=== PATIENT | female | born 1935 | race Caucasian/White ===

== ENCOUNTER → 2016-04-04 | Outpatient (REF) | payer MEDICARE ==
[~2016-04-04] MED LIST: CLAR1TAB2 PO; CLON1TAB PO; Docusate Sod/Senna PO; FERR325T3 PO; FISH100049 PO; FURO40TA2 PO; MONT10TA2 PO; NEUR600T PO; PERC5TAB6 PO; PERCOCET PO; RANI15TA PO; SPIR25TA2 PO; SYNT50TA PO; XARE20TA PO; ZOCO20TA PO
[2016-04-05 11:37] LABS: BASO # 0.1 K/mm3 (0.0-0.2); BASO % 0.8 % (0.0-1.0); EOS # 0.2 K/mm3 (0.0-0.50); LARGE UNSTAINED CELL # 0.1 K/mm3 (0.0-0.4); LARGE UNSTAINED CELL % 1.4 % (0.0-4.0); LYMPH % 20.9 % (24.0-44.0); MEAN CORPUSCULAR HEMOGLOBIN 29.4 pg (27.0-33.0); MEAN CORPUSCULAR HGB CONC 32.2 g/dl (32.0-36.5); MEAN CORPUSCULAR VOLUME 91.4 fl (80.0-96.0); MONO # 0.4 K/mm3 (0.0-0.8); MONO % 4.1 % (0.0-5.0); NEUTROPHILS # 6.8 K/mm3 (1.8-7.7); NEUTROPHILS % 70.8 % (36.0-66.0); PLATELET COUNT, AUTOMATED 311 k/mm3 (150-450); RED CELL DISTRIBUTION WIDTH 13.9 % (11.5-14.5); WHITE BLOOD COUNT 9.6 K/mm3 (4.0-10.0)
[2016-04-05 11:42] LABS: FOLATE 19.4 NG/ML (>5.4); VITAMIN B12 LEVEL 362 PG/ML (247-911)
[2016-04-05 11:53] LABS: ALBUMIN 3.7 GM/DL (3.2-5.2); ALBUMIN/GLOBULIN RATIO 1.23 (1.00-1.93); ALKALINE PHOSPHATASE 117 U/L (45-117); ALT/SGPT 18 U/L (12-78); ANION GAP 12 MEQ/L (8-16); AST/SGOT 9 U/L (15-37); BILIRUBIN,TOTAL 0.5 MG/DL (0.2-1.0); BLOOD UREA NITROGEN 13 MG/DL (7-18); CALCIUM LEVEL 8.9 MG/DL (8.8-10.2); CARBON DIOXIDE LEVEL 30 MEQ/L (21-32); CHLORIDE LEVEL 101 MEQ/L (98-107); CHOLESTEROL LEVEL 129 MG/DL (<200); CREATININE FOR GFR 0.88 MG/DL (0.55-1.02); GLOMERULAR FILTRATION RATE > 60.0 (>32); GLUCOSE, FASTING 94 MG/DL (83-110); POTASSIUM SERUM 4.6 MEQ/L (3.5-5.1); SODIUM LEVEL 143 MEQ/L (136-145); TOTAL PROTEIN 6.7 GM/DL (6.4-8.2); TRIGLYCERIDES LEVEL 172 MG/DL (<150)
== END ==
LOC: M SFHCCLAY 14:58
PROVIDERS: ATTEND Family Medicine
DX: G62.9 Polyneuropathy, unspecified (principal); E78.5 Hyperlipidemia, unspecified; R73.01 Impaired fasting glucose; E03.9 Hypothyroidism, unspecified; Z79.899 Other long term (current) drug therapy

== ENCOUNTER → 2016-04-10 | Outpatient (CLI) | payer MEDICARE ==
--- NOTE | 2016-04-10 10:58 | REP ---
Clinical: Anterior chest wall contusion . Comparison: 08/10/2015 . Technique: PA and lateral. Findings: The mediastinum and cardiac silhouette are normal. The lung burt demonstrate chronic-appearing changes without acute consolidation or pneumothorax. A small right pleural effusion/reaction cannot be excluded. The skeletal structures appear intact. Impression: 1. Cannot exclude small right pleural effusion.
== END ==
LOC: M CLY 10:25
PROVIDERS: ATTEND Family Medicine
DX: S20.211D Contusion of right front wall of thorax, subsequent encounter (principal); R05 Cough; W06.XXXD Fall from bed, subsequent encounter; Y92.009 Unspecified place in unspecified non-institutional (private) residence as the place of occurrence of the external cause; Y93.01 Activity, walking, marching and hiking; Y99.8 Other external cause status

== ENCOUNTER → 2016-10-03 | Outpatient (REF) | payer MEDICARE ==
[~2016-10-03] MED LIST changes: +PERC5TAB12 PO; -PERC5TAB6 PO
[2016-10-04 12:00] LABS: BASO # 0.1 K/mm3 (0.0-0.2); BASO % 0.9 % (0.0-1.0); EOS # 0.2 K/mm3 (0.0-0.50); EOS % 2.5 % (0.0-3.0); LARGE UNSTAINED CELL # 0.1 K/mm3 (0.0-0.4); LARGE UNSTAINED CELL % 1.2 % (0.0-4.0); LYMPH # 2.4 K/mm3 (1.5-4.5); LYMPH % 27.3 % (24.0-44.0); MEAN CORPUSCULAR HEMOGLOBIN 29.9 pg (27.0-33.0); MEAN CORPUSCULAR HGB CONC 32.9 g/dl (32.0-36.5); MEAN CORPUSCULAR VOLUME 90.8 fl (80.0-96.0); MONO # 0.3 K/mm3 (0.0-0.8); NEUTROPHILS # 5.5 K/mm3 (1.8-7.7); NEUTROPHILS % 64.2 % (36.0-66.0); PLATELET COUNT, AUTOMATED 226 k/mm3 (150-450); WHITE BLOOD COUNT 8.5 K/mm3 (4.0-10.0)
[2016-10-04 12:29] LABS: ALBUMIN 3.7 GM/DL (3.2-5.2); ALBUMIN/GLOBULIN RATIO 1.42 (1.00-1.93); ALKALINE PHOSPHATASE 82 U/L (45-117); ALT/SGPT 27 U/L (12-78); ANION GAP 8 MEQ/L (8-16); AST/SGOT 15 U/L (15-37); BILIRUBIN,TOTAL 0.6 MG/DL (0.2-1.0); BLOOD UREA NITROGEN 11 MG/DL (7-18); CARBON DIOXIDE LEVEL 29 MEQ/L (21-32); CHLORIDE LEVEL 106 MEQ/L (98-107); CREATININE FOR GFR 0.77 MG/DL (0.55-1.02); GLOMERULAR FILTRATION RATE > 60.0 (>32); GLUCOSE, FASTING 90 MG/DL (83-110); POTASSIUM SERUM 4.4 MEQ/L (3.5-5.1); SODIUM LEVEL 143 MEQ/L (136-145); TOTAL PROTEIN 6.3 GM/DL (6.4-8.2)
[2016-10-04 12:39] LABS: FOLATE 19.3 NG/ML (>5.4); VITAMIN B12 LEVEL 301 PG/ML (247-911)
== END ==
LOC: M SFHCCLAY 15:48
PROVIDERS: ATTEND Family Medicine
DX: D50.8 Other iron deficiency anemias (principal); E03.9 Hypothyroidism, unspecified; G62.9 Polyneuropathy, unspecified; R73.01 Impaired fasting glucose

== ENCOUNTER → 2016-11-15 | Outpatient (CLI) | payer MEDICARE ==
--- NOTE | 2016-11-15 13:21 | REP ---
PA and lateral chest: Comparison is 04/10/2016. There is chronic cardiomegaly, unchanged. There are no focal infiltrates. No pleural effusions. Lung burt otherwise clear. The giovanny, mediastinum, and bony thorax are unremarkable. There are surgical clips in the mid upper abdomen. Impression: Chronic cardiomegaly. Otherwise, negative chest.
== END ==
LOC: M CLY 09:38
PROVIDERS: ATTEND Family Medicine
DX: I48.91 Unspecified atrial fibrillation (principal); I51.7 Cardiomegaly; R05 Cough; D50.8 Other iron deficiency anemias; E78.5 Hyperlipidemia, unspecified; Z79.899 Other long term (current) drug therapy; J30.9 Allergic rhinitis, unspecified; R73.01 Impaired fasting glucose; G62.9 Polyneuropathy, unspecified; Z87.74 Personal history of (corrected) congenital malformations of heart and circulatory system; Z98.890 Other specified postprocedural states

== ENCOUNTER → 2016-11-15 | Outpatient (REF) | payer MEDICARE ==
[2016-11-15 11:29] LABS: BASO # 0.1 K/mm3 (0.0-0.2); BASO % 1.7 % (0.0-1.0); EOS # 0.3 K/mm3 (0.0-0.50); EOS % 3.7 % (0.0-3.0); LARGE UNSTAINED CELL # 0.1 K/mm3 (0.0-0.4); LARGE UNSTAINED CELL % 1.6 % (0.0-4.0); LYMPH # 2.2 K/mm3 (1.5-4.5); LYMPH % 30.7 % (24.0-44.0); MEAN CORPUSCULAR VOLUME 90.9 fl (80.0-96.0); MONO # 0.4 K/mm3 (0.0-0.8); MONO % 5.6 % (0.0-5.0); NEUTROPHILS # 3.9 K/mm3 (1.8-7.7); NEUTROPHILS % 56.6 % (36.0-66.0); PLATELET COUNT, AUTOMATED 285 k/mm3 (150-450); RED CELL DISTRIBUTION WIDTH 13.9 % (11.5-14.5); WHITE BLOOD COUNT 6.9 K/mm3 (4.0-10.0)
[2016-11-15 12:25] LABS: ALBUMIN 3.8 GM/DL (3.2-5.2); ALBUMIN/GLOBULIN RATIO 1.27 (1.00-1.93); ALKALINE PHOSPHATASE 94 U/L (45-117); ALT/SGPT 19 U/L (12-78); ANION GAP 4 MEQ/L (8-16); AST/SGOT 16 U/L (15-37); BILIRUBIN,TOTAL 0.6 MG/DL (0.2-1.0); BLOOD UREA NITROGEN 13 MG/DL (7-18); CALCIUM LEVEL 9.5 MG/DL (8.8-10.2); CARBON DIOXIDE LEVEL 33 MEQ/L (21-32); CHLORIDE LEVEL 104 MEQ/L (98-107); CREATININE FOR GFR 0.79 MG/DL (0.55-1.02); GLOMERULAR FILTRATION RATE > 60.0 (>32); GLUCOSE, FASTING 98 MG/DL (83-110); POTASSIUM SERUM 4.8 MEQ/L (3.5-5.1); SODIUM LEVEL 141 MEQ/L (136-145); TOTAL PROTEIN 6.8 GM/DL (6.4-8.2)
== END ==
LOC: M SFHCCLAY 09:28
PROVIDERS: ATTEND Family Medicine
DX: R05 Cough (principal); I48.91 Unspecified atrial fibrillation; D50.8 Other iron deficiency anemias; E78.5 Hyperlipidemia, unspecified; Z79.899 Other long term (current) drug therapy; J30.9 Allergic rhinitis, unspecified; R73.01 Impaired fasting glucose; G62.9 Polyneuropathy, unspecified; Z87.74 Personal history of (corrected) congenital malformations of heart and circulatory system; Z98.890 Other specified postprocedural states

== ENCOUNTER → 2016-12-06 | Outpatient (REF) | payer MEDICARE ==
[2016-12-06 18:19] LABS: CALCIUM LEVEL 9.4 MG/DL (8.8-10.2); CREATININE FOR GFR 1.04 MG/DL (0.55-1.02); GLOMERULAR FILTRATION RATE 54.1 (>32); POTASSIUM SERUM 3.9 MEQ/L (3.5-5.1)
== END ==
LOC: M LAB REF 11:03
PROVIDERS: ATTEND Internal Medicine Pulmonary Disease
DX: R06.02 Shortness of breath (principal)

== ENCOUNTER → 2017-05-17 | Outpatient (REF) | payer OTHER ==
[2017-05-17 17:18] LABS: BASO # 0.1 10^3/uL (0.0-0.2); BASO % 0.9 % (0.0-1.0); EOS # 0.2 10^3/uL (0.0-0.50); HEMATOCRIT 42.7 % (36.0-47.0); HEMOGLOBIN 13.8 g/dl (12.0-16.0); IMMATURE GRANULOCYTE % 0.5 % (0-3.0); LYMPH # 1.6 10^3/uL (1.5-4.5); LYMPH % 22.1 % (24.0-44.0); MEAN CORPUSCULAR HEMOGLOBIN 29.7 pg (27.0-33.0); MEAN CORPUSCULAR HGB CONC 32.3 g/dl (32.0-36.5); MEAN CORPUSCULAR VOLUME 91.8 fl (80.0-96.0); MONO # 0.5 10^3/uL (0.0-0.8); MONO % 6.9 % (0.0-5.0); NEUTROPHILS % 67.6 % (36.0-66.0); PLATELET COUNT, AUTOMATED 243 10^3/uL (150-450); RED BLOOD COUNT 4.65 10^6/uL (4.00-5.40); RED CELL DISTRIBUTION WIDTH 14.2 % (11.5-14.5); WHITE BLOOD COUNT 7.4 10^3/uL (4.0-10.0)
[2017-05-17 17:43] LABS: ESTIMATED AVERAGE GLUCOSE 131 MG/DL (60-110); HEMOGLOBIN A1c 6.2 %
[2017-05-17 17:44] LABS: ALBUMIN 3.6 GM/DL (3.2-5.2); ALBUMIN/GLOBULIN RATIO 1.29 (1.00-1.93); ALKALINE PHOSPHATASE 94 U/L (45-117); ALT/SGPT 20 U/L (12-78); ANION GAP 8 MEQ/L (8-16); AST/SGOT 12 U/L (7-37); BILIRUBIN,TOTAL 0.7 MG/DL (0.2-1.0); BLOOD UREA NITROGEN 13 MG/DL (7-18); CALCIUM LEVEL 8.3 MG/DL (8.8-10.2); CARBON DIOXIDE LEVEL 31 MEQ/L (21-32); CHLORIDE LEVEL 104 MEQ/L (98-107); CHOLESTEROL LEVEL 140 MG/DL (<200); CHOLESTEROL RISK RATIO 2.372 (<5); CREATININE FOR GFR 0.88 MG/DL (0.55-1.30); GLOMERULAR FILTRATION RATE > 60.0 (>32); GLUCOSE, FASTING 143 MG/DL (70-100); HDL CHOLESTEROL 59 MG/DL (>40); IRON (FE) 66 UG/DL (50-170); LDL CHOLESTEROL 49.8 MG/DL (<100); NON-HDL-C 81 MG/DL; POTASSIUM SERUM 4.5 MEQ/L (3.5-5.1); SODIUM LEVEL 143 MEQ/L (136-145); THYROXINE (T4) 11.8 UG/DL (4.5-12.0); TOTAL PROTEIN 6.4 GM/DL (6.4-8.2); TRIGLYCERIDES LEVEL 156 MG/DL (<150)
== END ==
LOC: M SFHCCLAY 09:28
DX: R73.01 Impaired fasting glucose (principal); E78.5 Hyperlipidemia, unspecified; E03.9 Hypothyroidism, unspecified; D50.8 Other iron deficiency anemias
CPT/HCPCS: 83540

== ENCOUNTER → 2017-11-26 | Outpatient (CLI) | payer MEDICARE | LOC: M CLY 10:13 | DX: I51.7 Cardiomegaly (principal); J98.4 Other disorders of lung; R05 Cough; E03.9 Hypothyroidism, unspecified; R73.01 Impaired fasting glucose; D50.8 Other iron deficiency anemias | CPT/HCPCS: 71046; 83540 ==

== ENCOUNTER → 2017-11-26 | Outpatient (REF) | payer OTHER ==
[2017-11-26 17:49] LABS: BASO % 0.3 % (0.0-1.0); EOS % 0.2 % (0.0-3.0); HEMATOCRIT 38.6 % (36.0-47.0); HEMOGLOBIN 12.7 g/dl (12.0-15.5); IMMATURE GRANULOCYTE % 0.7 % (0-3.0); LYMPH # 2.6 10^3/uL (1.5-4.5); LYMPH % 28.6 % (24.0-44.0); MEAN CORPUSCULAR HEMOGLOBIN 29.6 pg (27.0-33.0); MEAN CORPUSCULAR HGB CONC 32.9 g/dl (32.0-36.5); MONO # 0.6 10^3/uL (0.0-0.8); NEUTROPHILS # 5.9 10^3/uL (1.8-7.7); NEUTROPHILS % 64.2 % (36.0-66.0); PLATELET COUNT, AUTOMATED 291 10^3/uL (150-450); RED BLOOD COUNT 4.29 10^6/uL (4.00-5.40); RED CELL DISTRIBUTION WIDTH 14.5 % (11.5-14.5); WHITE BLOOD COUNT 9.2 10^3/uL (4.0-10.0)
[2017-11-26 17:57] LABS: ESTIMATED AVERAGE GLUCOSE 134 MG/DL (60-110); HEMOGLOBIN A1c 6.3 %
[2017-11-26 18:05] LABS: THYROID STIMULATING HORMONE 0.906 uIU/ML (0.358-3.740)
[2017-11-26 18:05] LABS: IRON (FE) 84 UG/DL (50-170)
== END ==
LOC: M SFHCCLAY 09:45
DX: E03.9 Hypothyroidism, unspecified (principal); R73.01 Impaired fasting glucose; D50.8 Other iron deficiency anemias
CPT/HCPCS: 83540

== ENCOUNTER → 2018-03-03 | Outpatient (CLI) | payer MEDICARE | LOC: M RAD 08:20 | DX: R10.84 Generalized abdominal pain (principal) | CPT/HCPCS: 76700 ==

== ENCOUNTER → 2018-03-06 | Outpatient (REF) | payer OTHER ==
[2018-03-06 17:16] LABS: ANION GAP 6 MEQ/L (8-16); BLOOD UREA NITROGEN 20 MG/DL (7-18); CALCIUM LEVEL 9.4 MG/DL (8.8-10.2); CARBON DIOXIDE LEVEL 32 MEQ/L (21-32); CHLORIDE LEVEL 101 MEQ/L (98-107); CREATININE FOR GFR 0.97 MG/DL (0.55-1.30); GLOMERULAR FILTRATION RATE 58.5 (>32); GLUCOSE, FASTING 104 MG/DL (70-100); POTASSIUM SERUM 4.7 MEQ/L (3.5-5.1); SODIUM LEVEL 139 MEQ/L (136-145)
[2018-03-06 17:23] LABS: FOLATE 11.9 NG/ML (>5.4); VITAMIN B12 LEVEL 409 PG/ML (247-911)
== END ==
LOC: M SFHCCLAY 09:21
DX: E78.5 Hyperlipidemia, unspecified (principal); R20.0 Anesthesia of skin
CPT/HCPCS: 82746

== ENCOUNTER → 2018-04-30 | Outpatient (CLI) | payer MEDICARE ==
[~2018-04-30] MED LIST changes: -CLON1TAB PO; +CLON1TAB8 PO; +SPIR-10 PO; -SPIR25TA2 PO
--- NOTE | 2018-04-30 14:36 | REP ---
Clinical: Cough . Comparison: 11/26/2017 . Technique: PA and lateral. Findings: Stable cardiomegaly is appreciated. Lung burt demonstrate chronic stable interstitial changes. A calcified granuloma overlies the right costophrenic angle which actually may be within the right breast as identified on rib series dated 08/10/2015. No obvious acute consolidation, effusion, or pneumothorax. Skeletal structures appear stable. Impression: 1. Cardiomegaly and interstitial changes appear chronic. 2. Granuloma at the right costophrenic angle likely within the right breast as noted on rib series. 08/10/2015. 3. No obvious acute process. If the patient remains symptomatic consider chest CT for further investigation. Electronically Signed by Dima Elias MD 04/30/2018 02:27 P
== END ==
LOC: M CLY 14:04
PROVIDERS: ATTEND Family Medicine
DX: R91.8 Other nonspecific abnormal finding of lung field (principal); I51.7 Cardiomegaly; R05 Cough; R06.2 Wheezing

== ENCOUNTER → 2018-05-05 | Outpatient (CLI) | payer MEDICARE ==
--- NOTE | 2018-05-05 15:41 | REP ---
RIGHT ELBOW, FOUR VIEWS: HISTORY: Pain. There is no acute fracture or dislocation. The joint space is normal in appearance. Calcified densities are present medial and lateral to the distal humerus and posterior to the ulnar olecranon process. This represents ligamentous or tendon calcification. IMPRESSION: There is no acute fracture or dislocation.
== END ==
LOC: M CLY 14:51
PROVIDERS: ATTEND Family Medicine
DX: M25.521 Pain in right elbow (principal)

== ENCOUNTER → 2018-06-06 | Outpatient (REF) | payer MEDICARE ==
[2018-06-06 17:12] LABS: ALBUMIN 3.2 GM/DL (3.2-5.2); ALT/SGPT 20 U/L (12-78); BILIRUBIN,TOTAL 0.5 MG/DL (0.2-1.0); BLOOD UREA NITROGEN 14 MG/DL (7-18); CARBON DIOXIDE LEVEL 32 MEQ/L (21-32); CHLORIDE LEVEL 99 MEQ/L (98-107); CHOLESTEROL LEVEL 138 MG/DL (<200); CHOLESTEROL RISK RATIO 3.136 (<5); CREATININE FOR GFR 0.83 MG/DL (0.55-1.30); GLOMERULAR FILTRATION RATE > 60.0 (>32); GLUCOSE, FASTING 148 MG/DL (70-100); HDL CHOLESTEROL 44 MG/DL (>40); LDL CHOLESTEROL 59 MG/DL (<100); NON-HDL-C 94 MG/DL; POTASSIUM SERUM 3.9 MEQ/L (3.5-5.1); SODIUM LEVEL 140 MEQ/L (136-145); TRIGLYCERIDES LEVEL 176 MG/DL (<150)
[2018-06-06 17:13] LABS: HEMOGLOBIN A1c 6.5 %
== END ==
LOC: M SFHCCLAY 09:39
PROVIDERS: ATTEND Family Medicine
DX: E03.9 Hypothyroidism, unspecified (principal); E78.5 Hyperlipidemia, unspecified; R73.01 Impaired fasting glucose

== ENCOUNTER 2018-08-12 12:33 | Emergency (ER) | payer MEDICARE ==
[~2018-08-12] VITALS: Ht 162.6 cm; Wt 69.5 kg
[2018-08-12] MEDS ORDERED: ADACEL/BOOSTRIX VACCINE (DIPHTH/PERTUSS/ACELL/TETANUS)0.5ML SYR (90715) IM ONE (13:00)
--- NOTE | 2018-08-12 13:29 | REP ---
CT cervical spine without contrast HISTORY: Trauma COMPARISON: None There is no acute fracture or subluxation. Disc bulges are present at the C3-4 and C4-5 levels. Disc bulges with associated osteophyte formation are present at the C5-6 and C6-7 levels. There is minimal narrowing of the spinal canal. Uncinate process and/or facet hypertrophy are present at the C3-4 through C6-7 levels. These findings produce minimal to mild narrowing of the neural foramina. The C3-4 through C6-7 intervertebral discs are decreased in height consistent with disc degeneration. IMPRESSION: 1. There is no acute fracture or subluxation. 2. There is cervical spondylosis at the C3-4 through C6-7 levels. Electronically Signed by Vargas Tse MD 08/12/2018 01:20 P
--- NOTE | 2018-08-12 14:12 | REP ---
Right elbow for views: Comparison is 05/05/2018. Mineralization is normal. The joint spaces are unremarkable. There is no fracture or dislocation. There is no effusion. There are chronic calcifications adjacent to the medial lateral distal humeral epicondyles and adjacent to the olecranon process, unchanged, likely degenerative ligamentous calcifications per Impression: No fracture or dislocation. No effusion. Calcifications as described. No interval change. Electronically Signed by Royce Moreno MD 08/12/2018 02:03 P
[2018-08-12] MEDS ORDERED: LIDOCAINE 2% W/EPIN INJ 20ML **PRES FREE INJ ONE (14:45)
[2018-08-12] MEDS ORDERED: BACIOIN5 OP (15:43)
--- NOTE | 2018-08-12 15:45 | REP ---
CT brain without contrast: History: Head trauma. CT findings: Digital preliminary material handling supervisor radiographs are unremarkable. On bone window settings, there is no evidence of skull fracture. No bony destructive lesion is seen. There is an area of scalp swelling and irregularity in the right frontal region. Heavy vascular calcification is seen in the distal carotid arteries. There is some mucus in the sphenoid sinus. The visualized paranasal sinuses are otherwise clear. On soft tissue window settings, there is generalized volume loss. Small vessel atherosclerotic changes are seen in the periventricular white matter. There is no evidence of intracranial hemorrhage. No extra-axial fluid collection is seen. No mass, infarction or midline shift is seen. Impression: Right frontal scalp swelling and irregularity. No skull fractures seen. Vascular calcification, diffuse atrophy, and small vessel atherosclerotic changes. No acute intracranial abnormality. Electronically Signed by Loy Tang MD 08/12/2018 05:25 P
--- NOTE | 2018-08-12 15:54 | REP ---
RIGHT KNEE, FIVE VIEWS: HISTORY: Trauma. There is no acute fracture or dislocation. There is mild narrowing of the joint spaces. Osteophytes are present on the femur and patella. IMPRESSION: There is no acute fracture or dislocation. Electronically Signed by Vargas Tse MD 08/12/2018 03:54 P
[2018-08-12 16:50] VITALS: BP 155/83
== END 2018-08-12 16:54 | disposition home or self-care (01) ==
LOC: EDBD 12:33 → M ED 12:33
DX: S01.01XA Laceration without foreign body of scalp, initial encounter (principal); T14.8XXA Other injury of unspecified body region, initial encounter; W01.0XXA Fall on same level from slipping, tripping and stumbling without subsequent striking against object, initial encounter; Y92.018 Other place in single-family (private) house as the place of occurrence of the external cause; I48.91 Unspecified atrial fibrillation; F33.9 Major depressive disorder, recurrent, unspecified; F41.9 Anxiety disorder, unspecified; E07.9 Disorder of thyroid, unspecified; E78.9 Disorder of lipoprotein metabolism, unspecified; Z79.899 Other long term (current) drug therapy; Z79.890 Hormone replacement therapy; Z79.01 Long term (current) use of anticoagulants; Z88.5 Allergy status to narcotic agent; Z88.8 Allergy status to other drugs, medicaments and biological substances

== ENCOUNTER → 2018-08-21 | Outpatient (CLI) | payer MEDICARE ==
[~2018-08-21] MED LIST changes: +BACIOIN5 OP
--- NOTE | 2018-08-21 14:49 | REP ---
Chest two views HISTORY: Shortness of breath Comparison: 04/30/2018 A minimal increase in interstitial markings is present in the lungs consistent with chronic interstitial change. The cardiac silhouette is enlarged. The pulmonary vasculature is normal in appearance. The bony structure is osteopenic. IMPRESSION: 1. Chronic interstitial change. 2. Cardiomegaly.
== END ==
LOC: M CLY 14:24
PROVIDERS: ATTEND Family Medicine
DX: R91.8 Other nonspecific abnormal finding of lung field (principal); I51.7 Cardiomegaly; R06.02 Shortness of breath

== ENCOUNTER → 2018-09-02 | Outpatient (REF) | payer MEDICARE | LOC: M SFHCCLAY 16:42 | PROVIDERS: ATTEND Nurse Practitioner Family | DX: R30.0 Dysuria (principal) ==

== ENCOUNTER → 2018-11-18 | Outpatient (REF) | payer MEDICARE ==
[2018-11-19 12:07] LABS: BASO % 0.2 % (0.0-1.0); EOS % 0.1 % (0.0-3.0); HEMATOCRIT 43.1 % (36.0-47.0); HEMOGLOBIN 14.1 g/dl (12.0-15.5); LYMPH # 2.1 10^3/uL (1.5-4.5); LYMPH % 13.9 % (24.0-44.0); MEAN CORPUSCULAR HEMOGLOBIN 29.7 pg (27.0-33.0); MEAN CORPUSCULAR HGB CONC 32.7 g/dl (32.0-36.5); MEAN CORPUSCULAR VOLUME 90.7 fl (80.0-96.0); MONO # 0.9 10^3/uL (0.0-0.8); MONO % 5.8 % (0.0-5.0); NEUTROPHILS # 11.7 10^3/uL (1.8-7.7); NEUTROPHILS % 78.5 % (36.0-66.0); PLATELET COUNT, AUTOMATED 331 10^3/uL (150-450); RED BLOOD COUNT 4.75 10^6/uL (4.00-5.40); WHITE BLOOD COUNT 14.8 10^3/uL (4.0-10.0)
[2018-11-19 12:30] LABS: ALBUMIN 3.7 GM/DL (3.2-5.2); ALT/SGPT 106 U/L (12-78); BILIRUBIN,TOTAL 0.6 MG/DL (0.2-1.0); BLOOD UREA NITROGEN 23 MG/DL (7-18); CARBON DIOXIDE LEVEL 26 MEQ/L (21-32); CHLORIDE LEVEL 104 MEQ/L (98-107); CREATININE FOR GFR 0.83 MG/DL (0.55-1.30); GLOMERULAR FILTRATION RATE > 60.0 (>32); GLUCOSE, FASTING 115 MG/DL (70-100); POTASSIUM SERUM 4.7 MEQ/L (3.5-5.1); SODIUM LEVEL 139 MEQ/L (136-145)
[2018-11-19 12:54] LABS: HEMOGLOBIN A1c 6.9 %
== END ==
LOC: M SFHCCLAY 15:15
PROVIDERS: ATTEND Family Medicine
DX: E03.9 Hypothyroidism, unspecified (principal); R73.01 Impaired fasting glucose; R20.0 Anesthesia of skin

== ENCOUNTER → 2019-02-19 | Outpatient (REF) | payer MEDICARE ==
[2019-02-20 12:15] LABS: ALBUMIN 3.6 GM/DL (3.2-5.2); ALT/SGPT 27 U/L (12-78); BILIRUBIN,TOTAL 0.8 MG/DL (0.2-1.0); BLOOD UREA NITROGEN 21 MG/DL (7-18); CALCIUM LEVEL 9.1 MG/DL (8.8-10.2); CARBON DIOXIDE LEVEL 32 MEQ/L (21-32); CHLORIDE LEVEL 105 MEQ/L (98-107); CREATININE FOR GFR 0.96 MG/DL (0.55-1.30); GLOMERULAR FILTRATION RATE 59.1 (>32); GLUCOSE, FASTING 92 MG/DL (70-100); POTASSIUM SERUM 4.7 MEQ/L (3.5-5.1); SODIUM LEVEL 143 MEQ/L (136-145); TOTAL PROTEIN 6.4 GM/DL (6.4-8.2)
[2019-02-20 12:24] LABS: FOLATE > 24.0 NG/ML (>5.4); VITAMIN B12 LEVEL 486 PG/ML (247-911)
[2019-02-20 12:26] LABS: HEMOGLOBIN A1c 6.7 %
== END ==
LOC: M SFHCCLAY 14:54
PROVIDERS: ATTEND Family Medicine
DX: E03.9 Hypothyroidism, unspecified (principal); R73.01 Impaired fasting glucose; R20.0 Anesthesia of skin

== ENCOUNTER → 2019-05-18 | Outpatient (REF) | payer MEDICARE ==
[~2019-05-18] MED LIST changes: -MONT10TA2 PO; +MONT10TA4 PO
[2019-05-18 16:24] LABS: CALCIUM LEVEL 9.3 MG/DL (8.8-10.2); CREATININE FOR GFR 1.02 MG/DL (0.55-1.30); GLOMERULAR FILTRATION RATE 55.1 (>32); POTASSIUM SERUM 4.1 MEQ/L (3.5-5.1)
== END ==
LOC: M SFHCCLAY 09:59
PROVIDERS: ATTEND Family Medicine
DX: R60.9 Edema, unspecified (principal)
CPT/HCPCS: 80048; G0463

== ENCOUNTER → 2019-08-10 | Outpatient (REF) | payer MEDICARE ==
[~2019-08-10] MED LIST changes: +AZEL1SPR3; +CETI-24 PO; +FERR325T18 PO; +FISH1000 PO; +GABA600T4 PO; +MONT10TA10 PO; -MONT10TA4 PO; +SIMV20TA22 PO; +SYNT75TA PO; +TRAM50TA2 PO
[2019-08-10 17:04] LABS: ALBUMIN 3.6 GM/DL (3.2-5.2); BILIRUBIN,TOTAL 0.8 MG/DL (0.2-1.0); CALCIUM LEVEL 9.4 MG/DL (8.8-10.2); CREATININE FOR GFR 1.08 MG/DL (0.55-1.30); GLOMERULAR FILTRATION RATE 51.5 (>32); POTASSIUM SERUM 4.4 MEQ/L (3.5-5.1); THYROID STIMULATING HORMONE 1.92 uIU/ML (0.358-3.740); TOTAL PROTEIN 6.3 GM/DL (6.4-8.2)
[2019-08-10 17:40] LABS: HEMOGLOBIN A1c 6.5 %
== END ==
LOC: M SFHCCLAY 11:18
PROVIDERS: ATTEND Family Medicine
DX: R73.01 Impaired fasting glucose (principal); E03.9 Hypothyroidism, unspecified
CPT/HCPCS: 80053; 83036; 84443; G0463

== ENCOUNTER → 2019-10-27 | Outpatient (REF) | payer MEDICARE ==
[~2019-10-27] MED LIST changes: -MONT10TA10 PO; +MONT10TA4 PO
[2019-11-20 09:53] LABS: APPEARANCE, URINE CLOUDY (CLEAR); COLOR, URINE YELLOW (YELLOW)
[2019-11-20 09:54] LABS: BILIRUBIN, URINE AUTO NEGATIVE (NEGATIVE); GLUCOSE, URINE (UA) AUTO NEGATIVE (NEGATIVE); KETONE, URINE AUTO NEGATIVE (NEGATIVE); NITRITE, URINE AUTO NEGATIVE (NEGATIVE); PROTEIN, URINE AUTO 1+ mg/dL (NEGATIVE); UROBILINOGEN, URINE AUTO 0.2 mg/dL (0.0-2.0)
[2019-11-20 10:04] LABS: BLOOD, URINE BLOOD POSITIVE (NEGATIVE); LEUKOCYTE ESTERASE, URINE AUTO POSITIVE (NEGATIVE); WBC, URINE AUTO TNTC /HPF (0-3)
[2019-11-20 10:07] LABS: BACTERIA, URINE AUTO 3+ (NEGATIVE); RBC, URINE AUTO 20-30 /HPF (0-3); SQUAMOUS EPITHELIAL CELL UR AU SMALL AMOUNT /HPF (0-6)
[2019-11-20 10:08] LABS: CALCIUM OXALATE CRYSTALS SMALL AMOUNT; MUCUS, URINE SMALL AMOUNT (NEGATIVE)
[2019-11-20 11:49] LABS: BASO # 0.1 10^3/uL (0.0-0.2); BASO % 0.7 % (0.0-1.0); EOS # 0.3 10^3/uL (0.0-0.5); EOS % 2.8 % (0.0-3.0); HEMATOCRIT 41.8 % (36.0-47.0); HEMOGLOBIN 13.6 g/dl (12.0-15.5); LYMPH % 21.6 % (24.0-44.0); MEAN CORPUSCULAR HEMOGLOBIN 30.4 pg (27.0-33.0); MEAN CORPUSCULAR HGB CONC 32.5 g/dl (32.0-36.5); MEAN CORPUSCULAR VOLUME 93.5 fl (80.0-96.0); MONO # 0.7 10^3/uL (0.0-0.8); MONO % 7.4 % (0.0-5.0); NEUTROPHILS # 6.2 10^3/uL (1.5-8.5); NEUTROPHILS % 66.5 % (36.0-66.0); PLATELET COUNT, AUTOMATED 301 10^3/uL (150-450); RED BLOOD COUNT 4.47 10^6/uL (4.00-5.40); WHITE BLOOD COUNT 9.4 10^3/uL (4.0-10.0)
[2020-01-19 14:03] LABS: GLUCOSE, FASTING SEE SEPARATE REPORT
== END ==
LOC: M SFHCCLAY 12:34
PROVIDERS: ATTEND Physician Assistant
DX: N30.01 Acute cystitis with hematuria (principal)
CPT/HCPCS: 36415; 80053; 81001; 81002; 85025; 87088; 87186; G0463

== ENCOUNTER → 2019-11-04 | Outpatient (REF) | payer MEDICARE | LOC: M SFHCCLAY 14:29 | PROVIDERS: ATTEND Physician Assistant | DX: S41.101A Unspecified open wound of right upper arm, initial encounter (principal); X58.XXXA Exposure to other specified factors, initial encounter; Y92.89 Other specified places as the place of occurrence of the external cause; L08.89 Other specified local infections of the skin and subcutaneous tissue ==

== ENCOUNTER → 2019-11-11 | Outpatient (REF) | payer MEDICARE | LOC: M SFHCCLAY 12:31 | PROVIDERS: ATTEND Physician Assistant | DX: N39.0 Urinary tract infection, site not specified (principal); R31.9 Hematuria, unspecified ==

== ENCOUNTER → 2019-11-17 | Outpatient (REF) | payer MEDICARE ==
[2020-01-11 04:17] LABS: ALBUMIN 3.7 GM/DL (3.2-5.2); BILIRUBIN,TOTAL 0.8 MG/DL (0.2-1.0); CALCIUM LEVEL 9.2 MG/DL (8.8-10.2); CREATININE FOR GFR 1.41 MG/DL (0.55-1.30); GLOMERULAR FILTRATION RATE 37.8 (>32); POTASSIUM SERUM 3.9 MEQ/L (3.5-5.1); THYROID STIMULATING HORMONE 1.08 uIU/ML (0.358-3.740); TOTAL PROTEIN 6.5 GM/DL (6.4-8.2)
== END ==
LOC: M SFHCCLAY 15:00
PROVIDERS: ATTEND Family Medicine
DX: I10 Essential (primary) hypertension (principal); E03.9 Hypothyroidism, unspecified

== ENCOUNTER → 2019-11-24 | Outpatient (REF) | payer MEDICARE ==
[2019-11-24 20:00] LABS: BASO # 0.1 10^3/uL (0.0-0.2); EOS # 0.2 10^3/uL (0.0-0.5); EOS % 2.4 % (0.0-3.0); HEMATOCRIT 38.9 % (36.0-47.0); HEMOGLOBIN 12.9 g/dl (12.0-15.5); LYMPH % 32.5 % (24.0-44.0); MEAN CORPUSCULAR HEMOGLOBIN 31.3 pg (27.0-33.0); MEAN CORPUSCULAR HGB CONC 33.2 g/dl (32.0-36.5); MEAN CORPUSCULAR VOLUME 94.4 fl (80.0-96.0); MONO # 0.6 10^3/uL (0.0-0.8); MONO % 8.8 % (0.0-5.0); NEUTROPHILS # 3.5 10^3/uL (1.5-8.5); PLATELET COUNT, AUTOMATED 301 10^3/uL (150-450); RED BLOOD COUNT 4.12 10^6/uL (4.00-5.40); WHITE BLOOD COUNT 6.3 10^3/uL (4.0-10.0)
[2019-11-24 20:17] LABS: BLOOD UREA NITROGEN 26 MG/DL (7-18); CREATININE FOR GFR 0.85 MG/DL (0.55-1.30); GLUCOSE, FASTING 118 MG/DL (70-100)
[2019-11-24 20:18] LABS: ALBUMIN 3.7 GM/DL (3.2-5.2); ALT/SGPT 22 U/L (12-78); BILIRUBIN,TOTAL 0.6 MG/DL (0.2-1.0); CALCIUM LEVEL 9.5 MG/DL (8.8-10.2); CARBON DIOXIDE LEVEL 29 MEQ/L (21-32); CHLORIDE LEVEL 102 MEQ/L (98-107); GLOMERULAR FILTRATION RATE > 60.0 (>32); POTASSIUM SERUM 4.1 MEQ/L (3.5-5.1); SODIUM LEVEL 138 MEQ/L (136-145); TOTAL PROTEIN 6.3 GM/DL (6.4-8.2)
== END ==
LOC: M LABDRAWC 10:10
PROVIDERS: ATTEND Physician Assistant
DX: I10 Essential (primary) hypertension (principal)
CPT/HCPCS: 36415; 80053; 85025; G0463

== ENCOUNTER 2019-12-15 02:48 | Inpatient (IN) | payer MEDICARE ==
[~2019-12-15] VITALS: Ht 162.6 cm; Wt 71.2 kg
[~2019-12-15 02:48] MED LIST changes: -AZEL1SPR3; -CETI-24 PO; -FERR325T18 PO; -FISH1000 PO; -GABA600T4 PO; -SIMV20TA22 PO; -SYNT75TA PO; -TRAM50TA2 PO
[2019-12-15] MEDS ORDERED: CETI-24 PO ×2 (03:04→06:37)
[2019-12-15] MEDS ORDERED: MORPHINE 2 MG/ML 1ML VIAL (J2270) IV ONE (03:15)
[2019-12-15] MEDS ORDERED: BOOSTRIX/ADACEL VACCINE (DIPHTH/PERTUSS/ACELL/TETANUS) 0.5ML SYR IM ONE (03:15)
--- NOTE | 2019-12-15 03:38 | REPVR ---
PROCEDURE INFORMATION: Exam: CT Head Without Contrast Exam date and time: 12/15/2019 3:24 AM Age: 84 years old Clinical indication: Injury or trauma; Fall; Initial encounter; Blunt trauma (contusions or hematomas) TECHNIQUE: Imaging protocol: Computed tomography of the head without contrast. Radiation optimization: All CT scans at this facility use at least one of these dose optimization techniques: automated exposure control; mA and/or kV adjustment per patient size (includes targeted exams where dose is matched to clinical indication); or iterative reconstruction. COMPARISON: CT Head without contrast 08/12/2018 12:39 PM FINDINGS: Brain: There is mild patchy low attenuation of deep white matter with small old lacunar infarcts in the basal ganglia and right thalamus. There is slight prominence of the peripheral sulci. Ventricles: There is slight prominence of the central ventricular system. Bones/joints: Unremarkable. No acute fracture. Paranasal sinuses: Visualized sinuses are unremarkable. No fluid levels. Mastoid air cells: Visualized mastoid air cells are well aerated. Soft tissues: Left forehead soft tissue swelling or hematoma. Slight right parietal scalp soft tissue swelling. IMPRESSION: 1. Left forehead soft tissue swelling and hematoma and slight right parietal scalp soft tissue swelling. 2. Mild chronic ischemic white matter change with small old lacunar infarcts of the lenticular nuclei and the right right thalamus which is similar to 08/12/2018. 3. Minimal atrophy. 4. Otherwise negative noncontrast head CT. Electronically signed by: Tim Cooper On 12/15/2019 03:37:58 AM
--- NOTE | 2019-12-15 03:43 | REPVR ---
PROCEDURE INFORMATION: Exam: CT Cervical Spine Without Contrast Exam date and time: 12/15/2019 3:24 AM Age: 84 years old Clinical indication: Injury or trauma; Fall; Initial encounter; Blunt trauma TECHNIQUE: Imaging protocol: Computed tomography images of the cervical spine without contrast. Radiation optimization: All CT scans at this facility use at least one of these dose optimization techniques: automated exposure control; mA and/or kV adjustment per patient size (includes targeted exams where dose is matched to clinical indication); or iterative reconstruction. COMPARISON: CT Spine,cervical w/o contrast 08/12/2018 12:39 PM FINDINGS: Vertebrae: No acute fracture. Normal alignment. C2-C3: Slight interspace narrowing with degenerative changes of apophyseal joints and no significant spinal or foraminal stenosis. C3-C4: Slight interspace narrowing with minimal degenerative changes of apophyseal joints and no spinal or foraminal stenosis. C4-C5: Slight anterolisthesis with mild degenerative changes of the left apophyseal joint. No significant spinal or foraminal stenosis. C5-C6: Prominent interspace narrowing with mild posterior osteophytes with low normal size of the spinal canal and no significant foraminal stenosis. C6-C7: Moderate interspace narrowing with minimal posterior paracentral osteophytes and bilateral degenerative changes and no significant spinal or foraminal stenosis. C7-T1: Minimal degenerative change, greatest in the left apophyseal joint with no spinal or foraminal stenosis. Soft tissues: Unremarkable. 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 Lungs: Lung apices are normal. IMPRESSION: 1. 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 2. Multilevel degenerative changes of the cervical spine without significant spinal or foraminal stenosis. 3. No acute fracture or subluxation. Electronically signed by: Tim Cooper On 12/15/2019 03:42:52 AM
--- NOTE | 2019-12-15 04:05 | REPVR ---
PROCEDURE INFORMATION: Exam: XR Right Humerus Exam date and time: 12/15/2019 3:43 AM Age: 84 years old Clinical indication: Pain; Upper arm; Right; Patient HX: Fell; Additional info: Trauma TECHNIQUE: Imaging protocol: XR Right humerus Views: 2 or more views. COMPARISON: CR Elbow, complete 08/12/2018 1:38 PM FINDINGS: Bones/joints: Fracture of the right humeral neck with mild displacement. There is separation of a small fragment medially. Moderately prominent degenerative remodeling of the glenohumeral joint. The remaining humerus is intact. Soft tissues: Normal. IMPRESSION: 1. Mildly displaced fracture of the right humeral neck with separation of a small fragment medially. 2. Moderately prominent degenerative changes at the glenohumeral joint. Electronically signed by: Tim Cooper On 12/15/2019 04:04:49 AM
--- NOTE | 2019-12-15 04:06 | REPVR ---
PROCEDURE INFORMATION: Exam: XR Right Forearm Exam date and time: 12/15/2019 3:43 AM Age: 84 years old Clinical indication: Pain; Lower or forearm; Right; Patient HX: Fell; Additional info: Trauma TECHNIQUE: Imaging protocol: XR Right forearm. Views: 2 views. COMPARISON: CR Humerus RIGHT 12/15/2019 3:18 AM FINDINGS: Bones/joints: Osteopenia. No fractures. Soft tissues: Normal. IMPRESSION: Negative right forearm. Electronically signed by: Tim Cooper On 12/15/2019 04:06:51 AM
--- NOTE | 2019-12-15 04:06 | REPVR ---
PROCEDURE INFORMATION: Exam: XR Chest, 1 View Exam date and time: 12/15/2019 3:43 AM Age: 84 years old Clinical indication: Chest pain; Type not specified TECHNIQUE: Imaging protocol: XR of the chest Views: 1 view. COMPARISON: CR CHEST 2 VIEW 08/21/2018 2:29 PM FINDINGS: Lungs: No interval infiltrates. Pleural space: Unremarkable. No pleural effusion. No pneumothorax. Heart/Mediastinum: The heart and mediastinum are unchanged. Bones/joints: Fracture of the right humeral neck with separation of fragments medially. Moderately prominent degenerative change of the right shoulder. IMPRESSION: 1. Fracture of the right humeral neck with separation of small fragments at the medial aspect. 2. Otherwise stable chest since 08/21/2018. Electronically signed by: Tim Cooper On 12/15/2019 04:05:59 AM
[2019-12-15 04:14] LABS: BASO # 0.1 10^3/uL (0.0-0.2); BASO % 0.5 % (0.0-1.0); EOS # 0.1 10^3/uL (0.0-0.5); EOS % 0.5 % (0.0-3.0); HEMATOCRIT 42.3 % (36.0-47.0); HEMOGLOBIN 14.1 g/dl (12.0-15.5); LYMPH # 2.6 10^3/uL (1.5-5.0); LYMPH % 17.3 % (24.0-44.0); MEAN CORPUSCULAR HEMOGLOBIN 31.1 pg (27.0-33.0); MEAN CORPUSCULAR HGB CONC 33.3 g/dl (32.0-36.5); MEAN CORPUSCULAR VOLUME 93.2 fl (80.0-96.0); MONO # 1.1 10^3/uL (0.0-0.8); MONO % 7.1 % (0.0-5.0); NEUTROPHILS # 10.8 10^3/uL (1.5-8.5); NEUTROPHILS % 72.7 % (36.0-66.0); PLATELET COUNT, AUTOMATED 337 10^3/uL (150-450); RED BLOOD COUNT 4.54 10^6/uL (4.00-5.40); WHITE BLOOD COUNT 14.9 10^3/uL (4.0-10.0)
[2019-12-15 04:26] LABS: INR 2.58; PROTHROMBIN TIME 28.2 SECONDS (11.8-14.0)
[2019-12-15 04:27] LABS: PARTIAL THROMBOPLASTIN TIME 41.7 SECONDS (25.0-38.4)
[2019-12-15 04:38] LABS: ALBUMIN 3.7 GM/DL (3.2-5.2); ALT/SGPT 27 U/L (12-78); BILIRUBIN,DIRECT 0.1 MG/DL (0.0-0.2); BILIRUBIN,TOTAL 0.5 MG/DL (0.2-1.0); BLOOD UREA NITROGEN 22 MG/DL (7-18); CALCIUM LEVEL 9.2 MG/DL (8.8-10.2); CARBON DIOXIDE LEVEL 30 MEQ/L (21-32); CHLORIDE LEVEL 100 MEQ/L (98-107); CK-MB VALUE MASS 1.8 NG/ML (<3.6); CPK CREATINE PHOSPHOKINASE 47 U/L (26-192); CREATININE FOR GFR 0.92 MG/DL (0.55-1.30); GLOMERULAR FILTRATION RATE > 60.0 (>32); GLUCOSE, FASTING 143 MG/DL (70-100); MB/CK RELATIVE INDEX 3.83 (< OR =4); POTASSIUM SERUM 4.6 MEQ/L (3.5-5.1); SODIUM LEVEL 137 MEQ/L (136-145); TOTAL PROTEIN 6.7 GM/DL (6.4-8.2); TROPONIN I < 0.02 NG/ML (< 0.10)
[2019-12-15] MEDS: LEVOTHYROXINE 75MCG TABLET (0.075MG) PO SCH (06:00)
[2019-12-15] MEDS ORDERED: ACETAMINOPHEN TAB 650MG DOSE (2X325MG) PO PRN (06:15)
[2019-12-15] MEDS ORDERED: GABA600T4 PO (06:37)
[2019-12-15] MEDS ORDERED: FISH1000 PO (06:37)
[2019-12-15] MEDS ORDERED: FURO40TA2 PO (06:37)
[2019-12-15] MEDS ORDERED: FERR325T18 PO (06:37)
--- NOTE | 2019-12-15 06:37 | HPEPDOC ---
[facility] Medical History & Physical Date of Admission Dec 15, 2019 Date of Service: Dec 15, 2019 Attending Physician: Aura Arthur MD History and Physical CHIEF COMPLAINT: fall HISTORY OF PRESENT ILLNESS: Patient is an 84 year old female who presents with a history mechanical fall from standing height, she states she fell asleep in an arm chair, woke up late at night and stood up to use the bathroom, however because of her chronic foot numbness she tripped and fell forward on to her head and shoulder. She was unable to get up due to pain and ended up yelling for help. Eventually someone from upstairs heard her and got the systems project manager who called 911 and she was transported to [facility] ED by EMS. In the ED her work up was significant for a R mildly displaced shoulder fracture and given that she typi jairon ambulates with a walker was admitted for PT/OT. The ED reached out to ortho who will see the patient in the hospital. PAST MEDICAL HISTORY: Atrial fibrillation GERD Hyperlipidemia Hypertension tetralogy of fallot chronic neuropathy hypothyroidism osteoarthiritis PAST SURGICAL HISTORY: tetralogy of fallot bimalleolar fracture repair appendectomy cholecystectomy hernia repair hysterectomy knee surgery cataract surgery SOCIAL HISTORY: Lives alone. Never smoker. Occasional alcholic beverage. Denies illicit drug use. FAMILY HISTORY: No pertinent family history ALLERGIES: Please see below. REVIEW OF SYSTEMS: Constitutional: Denies fevers, chills, night sweats, or recent unexpected weight change HEENT: Denies Headaches, head trauma, No visual changes or eye pain, denies nose bleeds, or difficulty swallowing Cardiovascular: Denies chest pain, palpitations, or orthopnea Respiratory: Denies cough, wheezing, or shortness of breath GI: Denies nausea, vomiting, abdominal pain, diarrhea or constipation : Denies pain with urination or frequency Musculoskeletal: See hpi Neuro / Psych: Denies muscle weakness or sensory loss Skin: Denies skin rashes HOME MEDICATIONS: Please see below. PHYSICAL EXAMINATION: VITAL SIGNS: See below GENERAL: Well appearing male sitting upright in bed in no acute distress HEENT:3cm purple forehead contusion with mild swelling, EOMI, no scleral ic terus, moist mucous membranes, no pharyngeal erythema. NECK: No cervical or supraclavicular lymphadenopathy. No JVD. CARDIOVASCULAR: regular rate, irregular rhythm, normal S1 and S2. No murmurs, gallops, rubs. LUNGS: CTAB with full breath sounds, no wheezes, crackles, or rhonchi. ABDOMEN: Soft, non-tender, non-distended, bowel sounds present. No hepatosplenomegaly. No masses or eccymosis. No CVA tenderness. EXTREMITIES: No swelling or edema. R-shoulder in sling, tender to light palpation. SKIN: NEUROLOGICAL: No focal or sensory deficits. CN II-XII grossly intact. PSYCHIATRIC: Normal mood and affect. LABORATORY DATA: See below. IMAGIN12/15/[address]: IMPRESSION: 1. Left forehead soft tissue swelling and hematoma and slight right parietal scalp soft tissue swelling. 2. Mild chronic ischemic white matter change with small old lacunar infarcts of the lenticular nuclei and the right right thalamus which is similar to 08/12/2018. 3. Minimal atrophy. 4. Otherwise negative noncontrast head CT. 12/15/[address]: IMPRESSION: 1. 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 2. Multilevel degenerative changes of the cervical spine without significant spinal or foraminal stenosis. 3. No acute fracture or subluxation. 12/15/2019 R-Radius/ulna XR: IMPRESSION: Negative right forearm. 12/15/2019 R-Humerus XR: IMPRESSION: 1. Mildly displaced fracture of the right humeral neck with separation of a small fragment medially. 2. Moderately prominent degenerative changes at the glenohumeral joint. 12/15/2019 CXR: IMPRESSION: 1. Fracture of the right humeral neck with separation of small fragments at the medial aspect. 2. Otherwise stable chest since 08/21/2018. MICROBIOLOGY: Please see below. Assessment/Plan: #. R-humoral neck fracture 2/2 mechanical fall -ED to reach out to ortho who can see patient in hospital, surgery unlikely to be needed -C/w right shoulder sling, tramadol, tylenol, percocet for pain control -PT/OT ordered #. leukocytosis -Likely inflammatory #. Afib -Controlled -Continue with home xarelto #. Hypertension -Continue home medications #. Hyperlipidemia -Continue simvastatin #. Hypothyroidism -Continue home synthroid #. Neuropathy -Continue home gabapentin DVT prohylaxis: Patient is on xarelto Dispo: Observation status, patient will need PT/OT and possible home care. Vital Signs Vital Signs Date Time Temp Pulse Resp B/P (MAP) Pulse Ox O2 Delivery O2 Flow Rate FiO2 12/15/19 05:24 88 16 198/72 (114) 97 Room Air 12/15/19 04:35 97.8 Laboratory Data Labs 24H Laboratory Tests 2 12/15/19 03:56: Immature Granulocyte % (Auto) 1.9, Neutrophils (%) (Auto) 72.7H, Lymphocytes (%) (Auto) 17.3L, Monocytes (%) (Auto) 7.1H, Eosinophils (%) (Auto) 0.5, Basophils (%) (Auto) 0.5, Neutrophils # (Auto) 10.8H, Lymphocytes # (Auto) 2.6, Monocytes # (Auto) 1.1H, Eosinophils # (Auto) 0.1, Basophils # (Auto) 0.1, Nucleated Red Blood Cells % (auto) 0.0, Prothrombin Time 28.2H, Prothromb Time International Ratio 2.58, Activated Partial Thromboplast Time 41.7H, Anion Gap 7L, Glomerular Filtration Rate > 60.0, Calcium Level 9.2, Total Bilirubin 0.5, Direct Bilirubin 0.1, Aspartate Amino Transf (AST/SGOT) 24, Alanine Aminotransferase (ALT/SGPT) 27, Alkaline Phosphatase 88, Total Creatine Kinase 47, Creatine Kinase MB 1.8, Creatine Kinase MB Relative Index 3.83, Troponin I < 0.02, Total Protein 6.7, Albumin 3.7, Albumin/Globulin Ratio 1.2 CBC/BMP Laboratory Tests 12/15/19 03:56 Home Medications Scheduled Azelastine HCl (Azelastine HCl) 0.1% [email or web address].pump, 1 SPRAY NA BID Cetirizine HCl (Cetirizine HCl) 10 Mg Tablet, 10 MG PO DAILY Ferrous Sulfate (Ferrous Sulfate) 325 Mg Tablet, 325 MG PO DAILY Furosemide (Furosemide) 40 Mg Tablet, 40 MG PO DAILY Gabapentin (Gabapentin) 600 Mg Tablet, 600 MG PO TID MORNING, DINNERTIME, QHS Levothyroxine Sodium (Synthroid) 75 Mcg Tablet, 75 MCG PO DAILY Montelukast Sodium (Montelukast Sodium) 10 Mg Tablet, 10 MG PO QPM DINNERTIME [place]-3 Fatty Acids/Fish Oil (Fish Oil 1,000 mg Capsule) 1 Each Capsule, 1,000 MG PO BID MORNING, DINNERTIME Rivaroxaban (Xarelto) 20 Mg Tablet, 20 MG PO QPM DINNERTIME Simvastatin (Simvastatin) 20 Mg Tablet, 20 MG PO QPM DINNERTIME Spironolactone (Spironolactone) 25 Mg Tablet, 50 MG PO QPM DINNERTIME Allergies Coded Allergies: codeine (Verified Adverse Reaction, Mild, upset stomach, 08/12/18) paroxetine (Verified Adverse Reaction, Mild, dizziness, confusion, 08/12/18) GME ATTESTATION GME ATTESTATION My faculty preceptor for this patient encounter was physically present during the encounter and was fully available. All aspects of the patient interview, examination, medical decision making process, and medical care plan development were reviewed and approved by the faculty preceptor. The faculty preceptor is aware and concurs with the plan as stated in the body of this note and will attest to such by his/her cosignature. ATTENDING NOTE I, Aura Arthur, have independently examined this patient and performed my own physical exam, as well as reviewed the documentation and edited where necessary. I have discussed in detail with the resident / student the findings and plan of treatment as documented by the resident / student and edited their note. I agree with their findings and treatment plan and have edited their documentation. I will continue to follow the patient during this hospital stay. ELIAS WONG DO Dec 15, 2019 06:37 Aura Arthur MD Dec 15, 2019 07:18
[2019-12-15] MEDS ORDERED: XARE20TA PO (06:38)
[2019-12-15] MEDS ORDERED: MONT10TA4 PO (06:38)
[2019-12-15] MEDS ORDERED: SYNT75TA PO (06:38)
[2019-12-15] MEDS ORDERED: AZEL1SPR3 (06:38)
[2019-12-15] MEDS ORDERED: SPIR-10 PO (06:38)
[2019-12-15] MEDS ORDERED: SIMV20TA22 PO (06:38)
[2019-12-15 09:30] VITALS: BP 131/66
[2019-12-15] MEDS: FUROSEMIDE 40 MG TAB PO SCH (09:31)
[2019-12-15] MEDS: GABAPENTIN 300 MG CAP PO SCH ×3 (09:31→20:22)
[2019-12-15] MEDS: FERROUS SULFATE 325MG TAB PO SCH (09:31)
[2019-12-15] MEDS: PERCOCET 5MG/325MG TAB PO PRN ×2 (09:32→15:26)
--- NOTE | 2019-12-15 10:34 | IPNPDOC ---
Date Seen The patient was seen on 12/15/19. 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 closed head injury - ct head:soft tissue swelling and hematoma VS, I&O, 24H, [place] Vital Signs/I&O Vital Signs Date Time Temp Pulse Resp B/P (MAP) Pulse Ox O2 Delivery O2 Flow Rate FiO2 12/15/19 09:50 18 12/15/19 06:20 84 139/78 (98) 98 Room Air 12/15/19 04:35 97.8 Laboratory Data 24H LABS Laboratory Tests 2 12/15/19 03:56: Immature Granulocyte % (Auto) 1.9, Neutrophils (%) (Auto) 72.7H, Lymphocytes (%) (Auto) 17.3L, Monocytes (%) (Auto) 7.1H, Eosinophils (%) (Auto) 0.5, Basophils (%) (Auto) 0.5, Neutrophils # (Auto) 10.8H, Lymphocytes # (Auto) 2.6, Monocytes # (Auto) 1.1H, Eosinophils # (Auto) 0.1, Basophils # (Auto) 0.1, Nucleated Red Blood Cells % (auto) 0.0, Prothrombin Time 28.2H, Prothromb Time International Ratio 2.58, Activated Partial Thromboplast Time 41.7H, Anion Gap 7L, Glomerular Filtration Rate > 60.0, Calcium Level 9.2, Total Bilirubin 0.5, Direct Bilirubin 0.1, Aspartate Amino Transf (AST/SGOT) 24, Alanine Aminotransferase (ALT/SGPT) 27, Alkaline Phosphatase 88, Total Creatine Kinase 47, Creatine Kinase MB 1.8, Creatine Kinase MB Relative Index 3.83, Troponin I < 0.02, Total Protein 6.7, Albumin 3.7, Albumin/Globulin Ratio 1.2 CBC/BMP Laboratory Tests 12/15/19 03:56 WESLEY RUBIO MD Dec 15, 2019 10:34
[2019-12-15] MEDS: SPIRONOLACTONE 50 MG TAB PO SCH (18:24)
[2019-12-15] MEDS: MONTELUKAST 10 MG TAB PO SCH (18:24)
[2019-12-15] MEDS: RIVAROXABAN 15 MG TAB (XARELTO) PO SCH (18:25)
[2019-12-15] MEDS: SIMVASTATIN 20 MG TAB PO SCH (18:25)
[2019-12-15 22:00] VITALS: BP 127/67
[2019-12-16] MEDS: PERCOCET 5MG/325MG TAB PO PRN ×3 (00:15→21:54)
[2019-12-16 06:00] VITALS: BP 172/90
[2019-12-16] MEDS: LEVOTHYROXINE 75MCG TABLET (0.075MG) PO SCH (06:08)
--- NOTE | 2019-12-16 07:23 | CR ---
DATE OF ADMISSION: 12/15/2019 CHIEF COMPLAINT: Right proximal humerus fracture. HISTORY OF PRESENT ILLNESS: This is an 84-year-old female seen today for a proximal humerus fracture. She fell earlier this morning. She had a mechanical fall. No head injury or other injuries or loss of consciousness. She fell asleep in her armchair and went up to use the washroom and tripped. CT scan in the emergency department was negative for acute intracranial abnormalities. I was asked to see the patient by a combination of nursing staff as well as Marnie the nurse practitioner. She is right-handed. She writes with her left hand, however. MEDICAL HISTORY: 1. Atrial fibrillation. 2. Gastroesophageal reflux disease (GERD). 3. Hyperlipidemia. 4. Hypertension. 5. Tetralogy of Fallot. 6. Chronic neuropathy. 7. Hypothyroidism. 8. Osteoarthritis. MEDICATIONS: Azelastine, cetirizine, ferrous sulfate, furosemide, gabapentin, Synthroid, montelukast, Xarelto, simvastatin, spironolactone. ALLERGIES: CODEINE and PAROXETINE. This is through the history and physical by the hospitalist, Dr. Arthur. PAST SURGICAL HISTORY: 1. Tetralogy of Fallot. 2. Ankle fracture repair. 3. Appendectomy. 4. Cholecystectomy. 5. Hernia repair. 6. Hysterectomy. 7. Knee surgery. 8. Cataract surgery. SOCIAL HISTORY: Lives alone. She lives in [facility] apartments. She is here with Yolanda, her girlfriend's mother. She drinks occasionally. Does not smoke or use tobacco. PHYSICAL EXAMINATION: Body mass index (BMI) 26.5. Her vital are stable. She appears well. She is alert and oriented times three. Appears thin overall. No obvious overlying redness, muscle deformity, or atrophy. There is normal sensation to the axillary nerve as well as MRU and good motor function of same plus posterior interosseous nerve (PIN)/anterior interosseous nerve (AIN). Strong radial pulse. Forearm compartments are soft. No pain in the hand, wrist, or forearm. Radiographs are reviewed of the right proximal humerus. This shows a fracture at the surgical neck. Mild displacement. Minimal angulation. Small separation of fragment medially. There is moderate glenohumeral joint osteoarthritis. ASSESSMENT AND PLAN: This 84-year-old female has a proximal humerus fracture. It appears minimally displaced. Given her age, functional status, and appearance of her x-rays, I would recommend nonsurgical treatment with initial treatment in a sling and immediate hand, wrist, and elbow range of motion as tolerated. She can be pendulum exercises if she so tolerates. She can can sleep at a 45-degree angle. Sometimes this helps for pain. She is admitted under the hospitalist service, awaiting physical therapy and occupational therapy (OT) assessment to see if she is safe for mobilization and discharge home. Otherwise, I will not follow her while she is in hospital. Followup in 2 weeks' time in the clinic with myself for repeat radiographs to ensure no further angulation or displacement. WANDA
[2019-12-16] MEDS: FUROSEMIDE 40 MG TAB PO SCH (08:23)
[2019-12-16] MEDS: GABAPENTIN 300 MG CAP PO SCH ×3 (08:24→21:55)
[2019-12-16] MEDS: FERROUS SULFATE 325MG TAB PO SCH (08:24)
[2019-12-16] MEDS: traMADol 50 MG TAB PO PRN (13:47)
[2019-12-16 14:00] VITALS: BP 136/70
[2019-12-16] MEDS: RIVAROXABAN 15 MG TAB (XARELTO) PO SCH (18:08)
[2019-12-16] MEDS: MONTELUKAST 10 MG TAB PO SCH (18:08)
[2019-12-16] MEDS: SPIRONOLACTONE 50 MG TAB PO SCH (18:08)
[2019-12-16] MEDS: SIMVASTATIN 20 MG TAB PO SCH (18:08)
[2019-12-16 22:00] VITALS: BP 155/79
[2019-12-17 06:00] VITALS: BP 134/69
[2019-12-17] MEDS: traMADol 50 MG TAB PO PRN (06:02)
[2019-12-17] MEDS: LEVOTHYROXINE 75MCG TABLET (0.075MG) PO SCH (06:02)
[2019-12-17] MEDS: GABAPENTIN 300 MG CAP PO SCH ×3 (09:00→21:47)
[2019-12-17] MEDS: FERROUS SULFATE 325MG TAB PO SCH (09:00)
[2019-12-17] MEDS ORDERED: FLUBLOK(EGG FREE)(QUAD)INFLUENZA VACC 0.5ML SYRINGE 18YRS & OLDER IM ONE (09:00)
[2019-12-17] MEDS: FUROSEMIDE 40 MG TAB PO SCH (09:01)
--- NOTE | 2019-12-17 10:21 | IPN ---
DATE: 12/16/2019 Patient complains of 8/10 pain on her elbow and hip despite pain medications. No fever, chills, nausea, vomiting, chest pain, pressure, or tightness, or shortness of breath. VITAL SIGNS: Temperature 98.4, pulse 81, respiratory rate 18, blood pressure 172/90, 95% on room air. GENERAL: Patient has ecchymosis along the forehead. No ng signs. No jugular venous distention (JVD) or thyromegaly. Dry mucous membranes. LUNGS: Clear to auscultation. No wheezing, rales, or rhonchi. HEART: S1, S2, sinus rhythm. ABDOMEN: Soft, nontender, nondistended. Positive bowel sounds. EXTREMITIES: Right shoulder in a sling. LABORATORY DATA: Reviewed. IMAGING STUDIES: Reviewed. ASSESSMENT: An 84-year-old with proximal humeral fracture, minimally displaced. History of tetralogy of Fallot. Hypertension, uncontrolled due to pain. PLAN: Patient is admitted for pain control, acute rehabilitation unit (ARU) evaluation. Per orthopedic surgery, nonsurgical treatment. Currently in a sling. Pendulum exercises if tolerated. Sleep at 45-degree angle. Followup in orthopedic surgery in 2 weeks. Adjust pain medications for better pain control. MTDD
[2019-12-17] MEDS: ACETAMINOPHEN 500 MG TAB PO SCH ×3 (11:35→21:48)
[2019-12-17 14:00] VITALS: BP 134/69
[2019-12-17] MEDS: SIMVASTATIN 20 MG TAB PO SCH (17:22)
[2019-12-17] MEDS: MONTELUKAST 10 MG TAB PO SCH (17:22)
[2019-12-17] MEDS: traMADol 50 MG TAB PO SCH ×2 (17:23→21:48)
[2019-12-17] MEDS: SPIRONOLACTONE 50 MG TAB PO SCH (17:23)
[2019-12-17] MEDS: RIVAROXABAN 15 MG TAB (XARELTO) PO SCH (17:23)
[2019-12-17 20:00] VITALS: BP 150/93
[2019-12-18] MEDS: LEVOTHYROXINE 75MCG TABLET (0.075MG) PO SCH (06:00)
[2019-12-18 06:38] VITALS: BP 162/84
[2019-12-18] MEDS: ACETAMINOPHEN 500 MG TAB PO SCH ×3 (07:42→21:01)
[2019-12-18] MEDS: FUROSEMIDE 40 MG TAB PO SCH (07:42)
[2019-12-18] MEDS: FERROUS SULFATE 325MG TAB PO SCH (07:42)
[2019-12-18] MEDS: GABAPENTIN 300 MG CAP PO SCH ×3 (07:42→21:00)
[2019-12-18] MEDS: traMADol 50 MG TAB PO SCH ×3 (07:43→21:01)
[2019-12-18] MEDS ORDERED: PERCOCET 5MG/325MG TAB PO ONE (10:00)
[2019-12-18] MEDS: KETOROLAC 30 MG/ML 1ML VIAL IV ONE ×2 (10:40→10:49)
[2019-12-18] MEDS ORDERED: amLODIPine 10 MG TAB PO ONE (12:00)
[2019-12-18 14:00] VITALS: BP 140/62
[2019-12-18] MEDS: MONTELUKAST 10 MG TAB PO SCH (16:55)
[2019-12-18] MEDS: SIMVASTATIN 20 MG TAB PO SCH (16:55)
[2019-12-18] MEDS: SPIRONOLACTONE 50 MG TAB PO SCH (16:56)
[2019-12-18] MEDS: RIVAROXABAN 15 MG TAB (XARELTO) PO SCH (16:56)
[2019-12-18 22:00] VITALS: BP 134/65
[2019-12-19 06:00] VITALS: BP 134/67
[2019-12-19] MEDS: LEVOTHYROXINE 75MCG TABLET (0.075MG) PO SCH (06:00)
[2019-12-19] MEDS: GABAPENTIN 300 MG CAP PO SCH ×3 (09:44→21:38)
[2019-12-19] MEDS: FERROUS SULFATE 325MG TAB PO SCH (09:44)
[2019-12-19] MEDS: ACETAMINOPHEN 500 MG TAB PO SCH ×3 (09:45→21:38)
[2019-12-19] MEDS: traMADol 50 MG TAB PO SCH ×3 (09:45→21:39)
--- NOTE | 2019-12-19 09:45 | ECGEPIP ---
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
[2019-12-19] MEDS: FUROSEMIDE 40 MG TAB PO SCH (09:46)
[2019-12-19] MEDS: amLODIPine 10 MG TAB PO SCH (09:46)
[2019-12-19 14:00] VITALS: BP 137/84
[2019-12-19] MEDS: SPIRONOLACTONE 50 MG TAB PO SCH (18:06)
[2019-12-19] MEDS: MONTELUKAST 10 MG TAB PO SCH (18:06)
[2019-12-19] MEDS: RIVAROXABAN 15 MG TAB (XARELTO) PO SCH (18:06)
[2019-12-19] MEDS: SIMVASTATIN 20 MG TAB PO SCH (18:06)
[2019-12-19 22:00] VITALS: BP 135/85
[2019-12-20 06:00] VITALS: BP 139/73
[2019-12-20] MEDS: LEVOTHYROXINE 75MCG TABLET (0.075MG) PO SCH (06:05)
[2019-12-20] MEDS: GABAPENTIN 300 MG CAP PO SCH ×3 (08:09→22:38)
[2019-12-20] MEDS: FERROUS SULFATE 325MG TAB PO SCH (08:09)
[2019-12-20] MEDS: amLODIPine 10 MG TAB PO SCH (08:10)
[2019-12-20] MEDS: ACETAMINOPHEN 500 MG TAB PO SCH ×3 (08:10→20:08)
[2019-12-20] MEDS: traMADol 50 MG TAB PO SCH ×3 (08:10→20:08)
[2019-12-20] MEDS: FUROSEMIDE 40 MG TAB PO SCH (08:10)
[2019-12-20] MEDS: PERCOCET 5MG/325MG TAB PO PRN (12:28)
[2019-12-20 14:00] VITALS: BP 118/59
[2019-12-20] MEDS: MONTELUKAST 10 MG TAB PO SCH (18:13)
[2019-12-20] MEDS: SPIRONOLACTONE 50 MG TAB PO SCH (18:13)
[2019-12-20] MEDS: SIMVASTATIN 20 MG TAB PO SCH (18:13)
[2019-12-20] MEDS: RIVAROXABAN 15 MG TAB (XARELTO) PO SCH (18:13)
[2019-12-20 22:00] VITALS: BP 140/82
[2019-12-21] MEDS: LEVOTHYROXINE 75MCG TABLET (0.075MG) PO SCH (05:25)
[2019-12-21 06:00] VITALS: BP 125/70
[2019-12-21] MEDS: GABAPENTIN 300 MG CAP PO SCH ×3 (10:39→22:17)
[2019-12-21] MEDS: traMADol 50 MG TAB PO SCH ×3 (10:43→22:18)
[2019-12-21] MEDS: FERROUS SULFATE 325MG TAB PO SCH (10:44)
[2019-12-21] MEDS: FUROSEMIDE 40 MG TAB PO SCH (10:44)
[2019-12-21] MEDS: amLODIPine 10 MG TAB PO SCH (10:45)
[2019-12-21] MEDS: ACETAMINOPHEN 500 MG TAB PO SCH ×3 (10:45→22:17)
[2019-12-21 10:51] LABS: HEMATOCRIT 39.5 % (36.0-47.0); MEAN CORPUSCULAR HEMOGLOBIN 30.4 pg (27.0-33.0); MEAN CORPUSCULAR HGB CONC 32.9 g/dl (32.0-36.5); MEAN CORPUSCULAR VOLUME 92.5 fl (80.0-96.0); PLATELET COUNT, AUTOMATED 302 10^3/uL (150-450); RED BLOOD COUNT 4.27 10^6/uL (4.00-5.40); WHITE BLOOD COUNT 11.4 10^3/uL (4.0-10.0)
[2019-12-21 11:17] LABS: BLOOD UREA NITROGEN 18 MG/DL (7-18); CALCIUM LEVEL 9.6 MG/DL (8.8-10.2); CARBON DIOXIDE LEVEL 28 MEQ/L (21-32); CHLORIDE LEVEL 100 MEQ/L (98-107); CREATININE FOR GFR 0.74 MG/DL (0.55-1.30); GLOMERULAR FILTRATION RATE > 60.0 (>32); GLUCOSE, FASTING 109 MG/DL (70-100); POTASSIUM SERUM 4.3 MEQ/L (3.5-5.1); SODIUM LEVEL 135 MEQ/L (136-145)
[2019-12-21 14:00] VITALS: BP 107/60
[2019-12-21] MEDS: SIMVASTATIN 20 MG TAB PO SCH (18:10)
[2019-12-21] MEDS: SPIRONOLACTONE 50 MG TAB PO SCH (18:10)
[2019-12-21] MEDS: MONTELUKAST 10 MG TAB PO SCH (18:10)
[2019-12-21] MEDS: RIVAROXABAN 15 MG TAB (XARELTO) PO SCH (18:10)
[2019-12-22] MEDS: LEVOTHYROXINE 75MCG TABLET (0.075MG) PO SCH (05:39)
[2019-12-22 06:00] VITALS: BP 112/58
[2019-12-22 08:57] VITALS: BP 112/58
[2019-12-22] MEDS: FUROSEMIDE 40 MG TAB PO SCH (08:57)
[2019-12-22] MEDS: GABAPENTIN 300 MG CAP PO SCH (08:57)
[2019-12-22] MEDS: FERROUS SULFATE 325MG TAB PO SCH (08:57)
[2019-12-22] MEDS: amLODIPine 10 MG TAB PO SCH (08:57)
[2019-12-22] MEDS: ACETAMINOPHEN 500 MG TAB PO SCH ×2 (08:58→15:50)
[2019-12-22] MEDS: traMADol 50 MG TAB PO SCH ×2 (08:58→15:50)
[2019-12-22] MEDS ORDERED: PERCOCET PO (15:14)
[2019-12-22] MEDS ORDERED: TRAM50TA2 PO (15:14)
--- NOTE | 2019-12-25 17:53 | DS.PDOC ---
Discharge Summary General Date of Admission Dec 15, 2019 at 06:26 Date of Discharge 12/22/19 Discharge Summary PROCEDURES PERFORMED DURING STAY: [None]. DISCHARGE DIAGNOSES: Right proximal Humerus fracture after a mechanical fall. SECONDARY DIAGNOSIS: Atrial fibrillation. Gastroesophageal reflux disease (GERD). Hyperlipidemia. Hypertension. Tetralogy of Fallot s/p surgery Chronic neuropathy with foot numbness Hypothyroidism. Osteoarthritis. COMPLICATIONS/CHIEF COMPLAINT: Fracture Of Neck Of Humerus. HOSPITAL COURSE: Patient is an 84 year old female who presents with a history mechanical fall from standing height, she states she fell asleep in an arm chair, woke up late at night and stood up to use the bathroom, however because of her chronic foot numbness she tripped and fell forward on to her head and shoulder. She was unable to get up due to pain and ended up yelling for help. Eventually someone from upstairs heard her and got the plastic surgery manager who called 911 and she was transported to [facility] ED by EMS. In the ED her work up was significant for a R mildly displaced proximal humerus fracture. Management was nonsurgical and arm was placed in a sling. She was recommended immediate hand, wrist, and elbow range of motion as tolerated. She can do pendulum exercises if she so christel erates. She can can sleep at a 45-degree angle. She is admitted under the hospitalist service, awaiting physical therapy and occupational therapy (OT) assessment to see if she is safe for mobilization and discharge home and for pain control. She is right handed and she typically ambulates with a walker which she was unable to do. She was seen and followed by PT and OT and a hemiw alker was prescribed. After working with PT/OT for several days she was deemed to be safe for discharge home with services. DISCHARGE MEDICATIONS: Please see below. ALLERGIES: Please see below. PHYSICAL EXAMINATION ON DISCHARGE: VITAL SIGNS: Please see below. GENERAL: Awake, alert sitting up in bed in no discomfort. HEENT: NC/ bruising over the forehead, MMM NECK: NO JVD, supple CARDIOVASCULAR EXAMINATION: Normal S1, S2 , regular, no added sounds RESPIRATORY EXAMINATION: Chest bilaterally clear to auscultation ABDOMINAL EXAMINATION: Soft , nontender, bowel sounds normal EXTREMITIES: No edema, Right arm in sling LABORATORY DATA: Please see below. ACTIVITY: [As tolerated]. DIET: As tolerated DISPOSITION: Home Health Service. DISCHARGE INSTRUCTIONS: Follow up with [facility] in 2 weeks Follow up with PMD in 1 week DISCHARGE CONDITION: [Stable]. TIME SPENT ON DISCHARGE: 35 minutes. Vital Signs/I&Os Vital Signs Date Time Temp Pulse Resp B/P (MAP) Pulse Ox O2 Delivery O2 Flow Rate FiO2 12/22/19 15:50 20 12/22/19 08:57 61 112/58 12/22/19 06:00 98.6 95 Room Air Discharge Medications Scheduled Azelastine HCl (Azelastine HCl) 0.1% [place].pump, 1 SPRAY NA BID, (Reported) Cetirizine HCl (Cetirizine HCl) 10 Mg Tablet, 10 MG PO DAILY, (Reported) Ferrous Sulfate (Ferrous Sulfate) 325 Mg Tablet, 325 MG PO DAILY, (Reported) Furosemide (Furosemide) 40 Mg Tablet, 40 MG PO DAILY, (Reported) Gabapentin (Gabapentin) 600 Mg Tablet, 600 MG PO TID, (Reported) MORNING, DINNERTIME, QHS Levothyroxine Sodium (Synthroid) 75 Mcg Tablet, 75 MCG PO DAILY, (Reported) Montelukast Sodium (Montelukast Sodium) 10 Mg Tablet, 10 MG PO QPM, (Reported) DINNERTIME [place]-3 Fatty Acids/Fish Oil (Fish Oil 1,000 mg Capsule) 1 Each Capsule, 1,000 MG PO BID, (Reported) MORNING, DINNERTIME Rivaroxaban (Xarelto) 20 Mg Tablet, 20 MG PO QPM, (Reported) DINNERTIME Simvastatin (Simvastatin) 20 Mg Tablet, 20 MG PO QPM, (Reported) DINNERTIME Spironolactone (Spironolactone) 25 Mg Tablet, 50 MG PO QPM, (Reported) DINNERTIME Tramadol HCl (Tramadol HCl) 50 Mg Tablet, 50 MG PO TID Scheduled PRN Oxycodone/Acetaminophen (Oxycodone-Acetaminophen 5-325) 1 Each Tablet, 1 TAB PO Q6HP PRN for severe pain (pain scale 8-10) Allergies Coded Allergies: codeine (Verified Adverse Reaction, Mild, upset stomach, 08/12/18) paroxetine (Verified Adverse Reaction, Mild, dizziness, confusion, 08/12/18 ) JOSE A ANDRADE MD Dec 25, 2019 17:53
--- NOTE | 2019-12-25 19:02 | IPN ---
DATE: 12/17/2019 SUBJECTIVE: The patient complains of 7/10 pain about three hours after receiving her pain medications, able to sleep last night, but woke up this morning in pain. Otherwise, denies any other complaints. PHYSICAL EXAMINATION: VITAL SIGNS: Temperature is 98, pulse is 87, respiratory rate 18, blood pressure is 134/69, 94% on 2 liters nasal cannula. GENERAL: Awake, alert and oriented x3. HEENT: Has ecchymosis on the left upper forehead and lateral aspect of the face. Extraocular muscles are intact. Normocephalic. NECK: No JVD or thyromegaly. LUNGS: Clear to auscultation. No wheezing, rales or rhonchi. HEART: S1 and S2, sinus rhythm. ABDOMEN: Soft, nontender and nondistended. EXTREMITIES: No pitting edema. LABORATORY DATA/IMAGING STUDIES: Have been reviewed. ASSESSMENT AND PLAN: An 84-year-old female with chronic A-fib, reflux, hypertension, hyperlipidemia, chronic neuropathy, hypothyroidism, osteoarthritis, Tetralogy of Fallot, status post traumatic injury with right mildly displaced shoulder fracture which is nonsurgical per Dr. Crum of Orthopedic Surgery. Patient is to continue with Physical Therapy and pain management. IMPRESSION: 1. Right shoulder fracture, nondisplaced. 2. Chronic atrial fibrillation. 3. Closed head injury. 4. Hyperlipidemia. 5. Reflux. 6. Hypertension. 7. Tetralogy of Fallot. 8. Chronic neuropathy. 9. Hypothyroidism. 10. Osteoarthritis. PLAN: Patients pain medications will be scheduled for better control. She is currently on Gabapentin at 600 t.i.d., Tramadol 50 q. 6 as needed and Percocet one tab for severe pain, Tylenol will be given one tab q.i.d., PT/OT, discharged once cleared by Physical Therapy. WANDA
--- NOTE | 2019-12-25 19:05 | IPN ---
DATE: 12/18/2019 SUBJECTIVE: The patient still says that her pain is 4/10. No plans for hospital discharge over the weekend per physical therapy recommendation for Saturday. She is still failing home safety evaluation. Despite hypertension the patient denies chest pain, pressure, tightness, lightheadedness, dizziness, headaches, or change in vision. PHYSICAL EXAMINATION: Vital signs: Temperature 97.8, pulse 81, respiratory rate 18, blood pressure 162/84, 96% on room air. General: Awake, alert and oriented times three, answering questions appropriately. She has ecchymosis and bruising along the left forehead. No jugular venous distention (JVD), thyromegaly or cervical lymphadenopathy. Lungs are clear to auscultation, no wheezing, rales or rhonchi. Her right arm is in a sling. Abdomen is soft, nontender, nondistended. Extremities: no cyanosis, clubbing or pitting edema. On 12/14, CBC and metabolic panel have been reviewed. ASSESSMENT AND PLAN: This is an 84-year-old female who lives alone with proximal humeral fracture minimally displaced admitted for conservative management, pain control, and home safety evaluation as she failed home safety at this time and will need three more days of physical therapy prior to discharge home. ISSUES: 1. Right proximal humeral fracture minimally displaced, nonsurgical. 2. Hypertension, uncontrolled due to pain. 3. History of tetralogy of Fallot. 4. Hypothyroidism. Continue on Synthroid. PLAN: Change to alternate level of care (ALC) status until cleared by physical therapy. Start on Norvasc 10 daily. Continue on Tramadol and Tylenol. Percocet as needed for breakthrough pain. MTDD
--- NOTE | 2019-12-25 19:07 | REP ---
RIGHT ELBOW SERIES: 12/16/19 CLINICAL: Trauma. Humeral neck fracture. TECHNIQUE: AP and lateral views of the right elbow. COMPARISON: 08/12/18. FINDINGS: Small element of calcific tendinoplasty adjacent to the olecranon process with mild soft tissue swelling is consistent with chronic calcific tendinoplasty and unchanged compared to prior. There is no evidence for acute fracture or dislocation. No obvious joint effusion. IMPRESSION: 1. Chronic calcific tendinoplasty. 2. No acute fracture or dislocation. MTDD
== END 2019-12-22 16:00 | disposition home health service (06) | DRG 563 ==
LOC: M ED 02:48 → M ED INP 06:26 → M MS5PR 09:05
PROVIDERS: ADMIT Internal Medicine; ATTEND General Practice
DX: S42.211A Unspecified displaced fracture of surgical neck of right humerus, initial encounter for closed fracture (principal); I48.20 Chronic atrial fibrillation, unspecified; K21.9 Gastro-esophageal reflux disease without esophagitis; E78.5 Hyperlipidemia, unspecified; I10 Essential (primary) hypertension; G62.9 Polyneuropathy, unspecified; E03.9 Hypothyroidism, unspecified; M19.90 Unspecified osteoarthritis, unspecified site; S09.90XA Unspecified injury of head, initial encounter; Z87.74 Personal history of (corrected) congenital malformations of heart and circulatory system; Z66 Do not resuscitate; Z87.81 Personal history of (healed) traumatic fracture; Z90.49 Acquired absence of other specified parts of digestive tract; Z98.49 Cataract extraction status, unspecified eye; W18.09XA Striking against other object with subsequent fall, initial encounter; Y92.008 Other place in unspecified non-institutional (private) residence as the place of occurrence of the external cause; Y99.8 Other external cause status; Z79.01 Long term (current) use of anticoagulants; Z79.899 Other long term (current) drug therapy; Z88.5 Allergy status to narcotic agent; Z88.8 Allergy status to other drugs, medicaments and biological substances

== ENCOUNTER → 2020-01-22 | Outpatient (REF) | payer MEDICARE ==
[~2020-01-22] MED LIST changes: +AZEL1SPR3; +CETI-24 PO; +FERR325T18 PO; +FISH1000 PO; +GABA600T4 PO; +SIMV20TA22 PO; +SYNT75TA PO; +TRAM50TA2 PO
[2020-01-22 18:55] LABS: AMORPHOUS SEDIMENT SMALL (NEGATIVE); BACTERIA, URINE AUTO 1+ (NEGATIVE); MUCUS, URINE SMALL (NEGATIVE); RBC, URINE AUTO 2 /HPF (0-3); SQUAMOUS EPITHELIAL CELL UR AU 3 /HPF (0-6); WBC, URINE AUTO 68 /HPF (0-3)
== END ==
LOC: M SMT 17:25
PROVIDERS: ATTEND Specialist
DX: N39.0 Urinary tract infection, site not specified (principal)
CPT/HCPCS: 81015; 87088; 87186; G0463

== ENCOUNTER → 2020-02-10 | Outpatient (CLI) | payer MEDICARE ==
--- NOTE | 2020-02-10 12:11 | REP ---
INDICATION: COUGH. COMPARISON: 12/15/2019, 08/21/2018, 04/10/2016 TECHNIQUE: Two views FINDINGS: Lungs are mildly hyperinflated with flattened diaphragms and increased AP diameter consistent with some degree of COPD. Some emphysematous changes mid upper lung zone noted. There is mild cardiomegaly with some left atrial and ventricular enlargement. See no vascular redistribution or edema. No acute infiltrate. Some minor basilar fibrotic changes are noted. Surgical clips and mello in the region of the GE junction and left upper quadrant. Contour rounding of the superior mediastinum on the right is again seen and unchanged dating back several examinations it could be a tortuous innominate artery. A normal-appearing aortic shadow is seen on the left. Some linear fibrotic changes are evident. Some minor oral wedging of a couple of thoracic vertebral bodies stable. Advanced degenerative changes of the right greater than left shoulder. Clavicles and ribs without acute fracture or destructive lesion. IMPRESSION: : 1. Cardiomegaly with left atrial and ventricular enlargement, mild and some underlying fibrosis COPD. There is no pulmonary edema or pleural effusion. 2. No acute infiltrate or mass. There are surgical clips in left upper quadrant and near the GE junction. 3. Contour bulging of the upper right mediastinum is noted and unchanged for many years. There does appear to be normal left aortic arch. This could be an innominate artery shadow or other vascular finding. Stability over many years is very reassuring and needs no further evaluation. <Electronically signed by Roc Mcclain > 02/10/20 [id number]
== END ==
LOC: M CLY 11:40
PROVIDERS: ATTEND Physician Assistant
DX: I51.7 Cardiomegaly (principal); J44.9 Chronic obstructive pulmonary disease, unspecified; R05 Cough
CPT/HCPCS: 71046; G0463

== ENCOUNTER → 2020-04-15 | Outpatient (REF) | payer MEDICARE ==
[~2020-04-15] MED LIST changes: -MONT10TA4 PO; +MONT5TAB2 PO
[2020-04-15 16:22] LABS: ALBUMIN 3.8 GM/DL (3.2-5.2); ALT/SGPT 21 U/L (12-78); BILIRUBIN,TOTAL 0.6 MG/DL (0.2-1.0); BLOOD UREA NITROGEN 18 MG/DL (7-18); CALCIUM LEVEL 9.5 MG/DL (8.8-10.2); CARBON DIOXIDE LEVEL 32 MEQ/L (21-32); CHLORIDE LEVEL 100 MEQ/L (98-107); CREATININE FOR GFR 0.86 MG/DL (0.55-1.30); GLOMERULAR FILTRATION RATE > 60.0 (>32); GLUCOSE, FASTING 99 MG/DL (70-100); SODIUM LEVEL 137 MEQ/L (136-145); TOTAL PROTEIN 6.6 GM/DL (6.4-8.2)
== END ==
LOC: M SFHCCLAY 11:12
PROVIDERS: ATTEND Family Medicine
DX: E03.9 Hypothyroidism, unspecified (principal); R73.01 Impaired fasting glucose
CPT/HCPCS: 80053; 83036; 84443; G0463

== ENCOUNTER → 2020-08-19 | Outpatient (REF) | payer MEDICARE ==
[~2020-08-19] MED LIST changes: +MONT10TA10 PO; -MONT5TAB2 PO
[2020-08-19 16:32] LABS: BASO % 0.6 % (0.0-1.0); EOS # 0.1 10^3/uL (0.0-0.5); EOS % 1.8 % (0.0-3.0); HEMATOCRIT 38.9 % (36.0-47.0); HEMOGLOBIN 12.3 g/dl (12.0-15.5); LYMPH # 1.9 10^3/uL (1.5-5.0); LYMPH % 25.9 % (24.0-44.0); MEAN CORPUSCULAR HEMOGLOBIN 29.4 pg (27.0-33.0); MEAN CORPUSCULAR HGB CONC 31.6 g/dl (32.0-36.5); MEAN CORPUSCULAR VOLUME 92.8 fl (80.0-96.0); MONO # 0.5 10^3/uL (0.0-0.8); MONO % 7.3 % (2.0-8.0); NEUTROPHILS # 4.6 10^3/uL (1.5-8.5); PLATELET COUNT, AUTOMATED 291 10^3/uL (150-450); RED BLOOD COUNT 4.19 10^6/uL (4.00-5.40); WHITE BLOOD COUNT 7.2 10^3/uL (4.0-10.0)
[2020-08-19 16:52] LABS: HEMOGLOBIN A1c 6.1 %
[2020-08-19 17:07] LABS: ALBUMIN 3.6 GM/DL (3.2-5.2); ALT/SGPT 21 U/L (12-78); BILIRUBIN,TOTAL 0.7 MG/DL (0.2-1.0); BLOOD UREA NITROGEN 19 MG/DL (7-18); CALCIUM LEVEL 8.8 MG/DL (8.8-10.2); CARBON DIOXIDE LEVEL 29 MEQ/L (21-32); CHLORIDE LEVEL 104 MEQ/L (98-107); CHOLESTEROL LEVEL 122 MG/DL (<200); CHOLESTEROL RISK RATIO 2.218 (<5); CREATININE FOR GFR 0.76 MG/DL (0.55-1.30); GLOMERULAR FILTRATION RATE > 60.0 (>32); GLUCOSE, FASTING 126 MG/DL (70-100); HDL CHOLESTEROL 55 MG/DL (>40); LDL CHOLESTEROL 46 MG/DL (<100); NON-HDL-C 67 MG/DL; POTASSIUM SERUM 4.3 MEQ/L (3.5-5.1); SODIUM LEVEL 139 MEQ/L (136-145); TOTAL PROTEIN 6.2 GM/DL (6.4-8.2); TRIGLYCERIDES LEVEL 105 MG/DL (<150)
== END ==
LOC: M SFHCCLAY 11:06
PROVIDERS: ATTEND Family Medicine
DX: E03.9 Hypothyroidism, unspecified (principal); R73.01 Impaired fasting glucose
CPT/HCPCS: 80053; 80061; 83036; 84443; 85025; G0463

== ENCOUNTER → 2020-12-16 | Outpatient (REF) | payer MEDICARE ==
[2020-12-16 17:01] LABS: BASO # 0.1 10^3/uL (0.0-0.2); BASO % 0.9 % (0.0-1.0); EOS # 0.1 10^3/uL (0.0-0.5); EOS % 1.1 % (0.0-3.0); HEMATOCRIT 38.7 % (36.0-47.0); HEMOGLOBIN 12.3 g/dl (12.0-15.5); LYMPH # 2.2 10^3/uL (1.5-5.0); LYMPH % 23.2 % (24.0-44.0); MEAN CORPUSCULAR HEMOGLOBIN 28.9 pg (27.0-33.0); MEAN CORPUSCULAR HGB CONC 31.8 g/dl (32.0-36.5); MEAN CORPUSCULAR VOLUME 91.1 fl (80.0-96.0); MONO # 0.8 10^3/uL (0.0-0.8); MONO % 8.4 % (2.0-8.0); NEUTROPHILS # 6.3 10^3/uL (1.5-8.5); NEUTROPHILS % 65.8 % (36.0-66.0); PLATELET COUNT, AUTOMATED 281 10^3/uL (150-450); RED BLOOD COUNT 4.25 10^6/uL (4.00-5.40); WHITE BLOOD COUNT 9.5 10^3/uL (4.0-10.0)
[2020-12-16 17:14] LABS: HEMOGLOBIN A1c 6.1 %
[2020-12-16 17:29] LABS: ALBUMIN 3.6 GM/DL (3.2-5.2); ALT/SGPT 19 U/L (12-78); BILIRUBIN,TOTAL 0.8 MG/DL (0.2-1.0); BLOOD UREA NITROGEN 16 MG/DL (7-18); CALCIUM LEVEL 9.5 MG/DL (8.8-10.2); CARBON DIOXIDE LEVEL 30 MEQ/L (21-32); CHLORIDE LEVEL 102 MEQ/L (98-107); CREATININE FOR GFR 0.74 MG/DL (0.55-1.30); GLOMERULAR FILTRATION RATE > 60.0 (>32); GLUCOSE, FASTING 90 MG/DL (70-100); POTASSIUM SERUM 4.4 MEQ/L (3.5-5.1); SODIUM LEVEL 139 MEQ/L (136-145); TOTAL PROTEIN 6.4 GM/DL (6.4-8.2)
== END ==
LOC: M SFHCCLAY 10:23
PROVIDERS: ATTEND Family Medicine
DX: E03.9 Hypothyroidism, unspecified (principal); R73.01 Impaired fasting glucose
CPT/HCPCS: 80053; 83036; 84443; 85025; G0463

== ENCOUNTER → 2020-12-23 | Outpatient (CLI) | payer MEDICARE ==
--- NOTE | 2020-12-23 11:38 | REP ---
INDICATION: LACERATION W/O FOREIGN BODY, RIGHT LOWER LEG, SUBS ENCNTR. COMPARISON: None. TECHNIQUE: AP and lateral FINDINGS: No acute fracture or destructive osseous lesion. The bones are demineralized IMPRESSION: No definite acute osseous abnormality <Electronically signed by Robe Rodriguez > 12/23/20 113
== END ==
LOC: M RAD 10:48
PROVIDERS: ATTEND Physician Assistant
DX: S81.811D Laceration without foreign body, right lower leg, subsequent encounter (principal)
CPT/HCPCS: 11042; 73590; G0463

== ENCOUNTER → 2021-02-08 | Outpatient (REF) | payer MEDICARE, OTHER | LOC: M SFHCCAPE 14:16 | PROVIDERS: ATTEND Physician Assistant | DX: J02.9 Acute pharyngitis, unspecified (principal) ==

== ENCOUNTER → 2021-04-10 | Outpatient (REF) | payer MEDICARE, OTHER ==
[~2021-04-10] MED LIST changes: -MONT10TA10 PO; +MONT10TA97 PO
[2021-04-10 13:08] LABS: ALBUMIN 3.6 GM/DL (3.2-5.2); BILIRUBIN,TOTAL 0.5 MG/DL (0.2-1.0); CALCIUM LEVEL 9.3 MG/DL (8.8-10.2); CREATININE FOR GFR 0.99 MG/DL (0.55-1.30); GLOMERULAR FILTRATION RATE 56.8 (>32); POTASSIUM SERUM 4.1 MEQ/L (3.5-5.1); THYROID STIMULATING HORMONE 3.76 uIU/ML (0.358-3.740); TOTAL PROTEIN 6.5 GM/DL (6.4-8.2)
== END ==
LOC: M SFHCCLAY 08:13
PROVIDERS: ATTEND Family Medicine
DX: E03.9 Hypothyroidism, unspecified (principal); R73.01 Impaired fasting glucose; Z23 Encounter for immunization
CPT/HCPCS: 80053; 83036; 84443; 90682; G0008; G0463

== ENCOUNTER → 2021-05-25 | Outpatient (CLI) | payer MEDICARE, OTHER | LOC: M SOG 08:34 | PROVIDERS: ATTEND Orthopaedic Surgery Adult Reconstructive Orthopaedic Surgery | DX: M25.461 Effusion, right knee (principal) ==

== ENCOUNTER → 2021-09-08 | Outpatient (REF) | payer MEDICARE, OTHER | LOC: M SFHCCLAY 10:21 | PROVIDERS: ATTEND Physician Assistant | DX: R30.0 Dysuria (principal) ==

== ENCOUNTER → 2021-10-17 | Outpatient (REF) | payer MEDICARE | LOC: M SFHCCLAY 11:24 | PROVIDERS: ATTEND Physician Assistant | DX: R09.82 Postnasal drip (principal) ==

== ENCOUNTER → 2021-10-18 | Outpatient (REF) | payer MEDICARE ==
[2021-10-18 11:37] LABS: BASO # 0.1 10^3/uL (0.0-0.2); BASO % 1.2 % (0.0-1.0); EOS # 0.2 10^3/uL (0.0-0.5); EOS % 2.3 % (0.0-3.0); HEMATOCRIT 38.7 % (36.0-47.0); HEMOGLOBIN 12.5 g/dl (12.0-15.5); LYMPH # 2.5 10^3/uL (1.5-5.0); LYMPH % 33.6 % (24.0-44.0); MEAN CORPUSCULAR HEMOGLOBIN 30.3 pg (27.0-33.0); MEAN CORPUSCULAR HGB CONC 32.3 g/dl (32.0-36.5); MEAN CORPUSCULAR VOLUME 93.9 fl (80.0-96.0); MONO # 0.5 10^3/uL (0.0-0.8); MONO % 6.9 % (2.0-8.0); NEUTROPHILS # 4.1 10^3/uL (1.5-8.5); NEUTROPHILS % 55.6 % (36.0-66.0); PLATELET COUNT, AUTOMATED 270 10^3/uL (150-450); RED BLOOD COUNT 4.12 10^6/uL (4.00-5.40); WHITE BLOOD COUNT 7.4 10^3/uL (4.0-10.0)
[2021-10-18 12:09] LABS: ALBUMIN 3.8 GM/DL (3.2-5.2); ALT/SGPT 31 U/L (12-78); BILIRUBIN,TOTAL 0.8 MG/DL (0.2-1.0); BLOOD UREA NITROGEN 17 MG/DL (7-18); CALCIUM LEVEL 9.7 MG/DL (8.8-10.2); CARBON DIOXIDE LEVEL 30 MEQ/L (21-32); CHLORIDE LEVEL 103 MEQ/L (98-107); CREATININE FOR GFR 0.92 MG/DL (0.55-1.30); GLOMERULAR FILTRATION RATE > 60.0 (>32); GLUCOSE, FASTING 141 MG/DL (70-100); NT-PRO BNP 1162 PG/ML (<450); POTASSIUM SERUM 4.1 MEQ/L (3.5-5.1); SODIUM LEVEL 139 MEQ/L (136-145); TOTAL PROTEIN 6.5 GM/DL (6.4-8.2)
== END ==
LOC: M SFHCCLAY 08:01
PROVIDERS: ATTEND Physician Assistant
DX: R07.89 Other chest pain (principal); Z79.899 Other long term (current) drug therapy

== ENCOUNTER → 2021-10-18 | Outpatient (CLI) | payer MEDICARE ==
[~2021-10-18] MED LIST changes: +SIMV-253 PO; -ZOCO20TA PO
== END ==
LOC: M CLY 08:50
PROVIDERS: ATTEND Physician Assistant
DX: R07.89 Other chest pain (principal); Z79.899 Other long term (current) drug therapy

== ENCOUNTER → 2021-10-31 | Outpatient (CLI) | payer MEDICARE ==
[~2021-10-31] MED LIST changes: +BUPIVACAINE HCL 0.5% 30ML VIAL As Ordered ONE; +ISOVUE-300 61% 50ML VIAL As Ordered ONE; +LIDOCAINE 1% MDV 20ML VIAL As Ordered ONE; +methylPREDNISolone 80MG/ML SUSP 1ML VIAL (J1040) As Ordered ONE
== END ==
LOC: M RADPRO 14:54
PROVIDERS: ATTEND Physician Assistant Medical
DX: M19.011 Primary osteoarthritis, right shoulder (principal); M25.511 Pain in right shoulder
CPT/HCPCS: 20610; 76000; J1040; Q9967

== ENCOUNTER → 2022-01-12 | Outpatient (REF) | payer MEDICARE ==
[~2022-01-12] MED LIST changes: -BUPIVACAINE HCL 0.5% 30ML VIAL As Ordered ONE; -ISOVUE-300 61% 50ML VIAL As Ordered ONE; -LIDOCAINE 1% MDV 20ML VIAL As Ordered ONE; -methylPREDNISolone 80MG/ML SUSP 1ML VIAL (J1040) As Ordered ONE
[2022-01-12 18:11] LABS: ALBUMIN 3.8 GM/DL (3.2-5.2); ALT/SGPT 69 U/L (12-78); BILIRUBIN,TOTAL 0.7 MG/DL (0.2-1.0); BLOOD UREA NITROGEN 17 MG/DL (7-18); CALCIUM LEVEL 9.2 MG/DL (8.8-10.2); CARBON DIOXIDE LEVEL 30 MEQ/L (21-32); CHLORIDE LEVEL 101 MEQ/L (98-107); CREATININE FOR GFR 0.87 MG/DL (0.55-1.30); GLOMERULAR FILTRATION RATE > 60.0 (>32); GLUCOSE, FASTING 92 MG/DL (70-100); POTASSIUM SERUM 4.2 MEQ/L (3.5-5.1); SODIUM LEVEL 137 MEQ/L (136-145); TOTAL PROTEIN 6.5 GM/DL (6.4-8.2); URIC ACID 7.9 MG/DL (2.6-6.0)
[2022-01-12 19:16] LABS: HEMOGLOBIN A1c 5.8 %
== END ==
LOC: M SFHCCLAY 13:30
PROVIDERS: ATTEND Family Medicine
DX: R73.01 Impaired fasting glucose (principal)

== ENCOUNTER → 2022-01-19 | Outpatient (REF) | payer MEDICARE ==
[2022-01-19 18:36] LABS: APPEARANCE, URINE MANUAL CLEAR (CLEAR); BILIRUBIN, URINE MANUAL NEGATIVE (NEGATIVE); BLOOD URINE MANUAL NEGATIVE (NEGATIVE); COLOR, URINE MANUAL YELLOW (YELLOW); GLUCOSE, URINE (UA) MANUAL NEGATIVE (NEGATIVE); KETONE, URINE MANUAL NEGATIVE (NEGATIVE); LEUKOCYTE ESTERASE, URINE MAN POSITIVE (NEGATIVE); NITRITE, URINE MANUAL POSITIVE (NEGATIVE); PROTEIN, URINE MANUAL NEGATIVE (NEGATIVE); UROBILINOGEN, URINE MANUAL NORMAL (NORMAL)
[2022-01-19 19:28] LABS: RBC, URINE 0-1 /hpf (0-3); SQUAMOUS EPITHELIAL CELL URINE SMALL AMOUNT /hpf (SMALL AMT)
[2022-01-19 19:29] LABS: BACTERIA, URINE LARGE AMOUNT; CALCIUM OXALATE CRYSTALS,URINE MOD AMOUNT /hpf
== END ==
LOC: M SMT 16:58
PROVIDERS: ATTEND Nurse Practitioner Women's Health
DX: R30.0 Dysuria (principal)

== ENCOUNTER 2022-06-06 11:57 | Inpatient (IN) | payer MEDICARE ==
[~2022-06-06] VITALS: Ht 162.6 cm; Wt 65.9 kg
[2022-06-06] MEDS ORDERED: MORPHINE 4 MG/ML 1ML VIAL IV ONE (13:10)
[2022-06-06 13:15] LABS: CK-MB VALUE MASS 1.5 NG/ML (<3.6)
[2022-06-06 13:17] LABS: BLOOD UREA NITROGEN 26 MG/DL (9-23); CALCIUM LEVEL 9.3 MG/DL (8.3-10.6); CARBON DIOXIDE LEVEL 28 MMOL/L (20-31); CHLORIDE LEVEL 97 MMOL/L (98-107); CREATININE FOR GFR 0.71 MG/DL (0.55-1.30); GLOMERULAR FILTRATION RATE > 60.0 (>32); GLUCOSE, FASTING 160 MG/DL (74-106); POTASSIUM SERUM 4.4 MMOL/L (3.5-5.1); SODIUM LEVEL 136 MMOL/L (136-145)
[2022-06-06 13:21] LABS: CPK CREATINE PHOSPHOKINASE 42 U/L (34-145); MB/CK RELATIVE INDEX 3.57 (< OR =4)
[2022-06-06 13:23] LABS: BASO % 0.2 % (0.0-1.0); EOS % 0.1 % (0.0-3.0); HEMATOCRIT 35.8 % (36.0-47.0); HEMOGLOBIN 11.8 g/dl (12.0-15.5); LYMPH # 1.6 10^3/uL (1.5-5.0); LYMPH % 15.5 % (24.0-44.0); MEAN CORPUSCULAR HEMOGLOBIN 29.8 pg (27.0-33.0); MEAN CORPUSCULAR VOLUME 90.4 fl (80.0-96.0); MONO # 0.3 10^3/uL (0.0-0.8); MONO % 2.5 % (2.0-8.0); NEUTROPHILS # 8.2 10^3/uL (1.5-8.5); NEUTROPHILS % 79.3 % (36.0-66.0); PLATELET COUNT, AUTOMATED 296 10^3/uL (150-450); RED BLOOD COUNT 3.96 10^6/uL (4.00-5.40); WHITE BLOOD COUNT 10.3 10^3/uL (4.0-10.0)
[2022-06-06 14:03] LABS: THYROID STIMULATING HORMONE 2.889 uIU/ML (0.55-4.78)
[2022-06-06 14:04] LABS: FREE T4 1.6 NG/DL (0.89-1.76)
[2022-06-06] MEDS ORDERED: PERCOCET 5MG/325MG TAB PO ONE (14:30)
[2022-06-06] MEDS ORDERED: NS 500 ML IV ONE (15:05)
[2022-06-06 15:18] LABS: CK-MB VALUE MASS 1.4 NG/ML (<3.6); MB/CK RELATIVE INDEX 3.33 (< OR =4)
[2022-06-06 16:21] LABS: CK-MB VALUE MASS 1.7 NG/ML (<3.6)
[2022-06-06 16:29] VITALS: O2SAT 95
[2022-06-06 16:45] LABS: MB/CK RELATIVE INDEX 3.46 (< OR =4)
[2022-06-06] MEDS ORDERED: PERCOCET 5MG/325MG TAB PO PRN (17:50)
[2022-06-06] MEDS: NS 1,000 ML IV SCH ×2 (18:07→23:06)
[2022-06-06 18:29] LABS: RSV AMPLIFICATION NEGATIVE (NEGATIVE)
[2022-06-06] MEDS ORDERED: CEPHALEXIN 500 MG CAP PO SCH (21:00)
[2022-06-06] MEDS ORDERED: SIMVASTATIN 20 MG TAB PO SCH (21:00)
[2022-06-06 21:15] VITALS: BP 120/75
[2022-06-06] MEDS ORDERED: HOME MED LIST COMPLETE! XX SCH (22:20)
[2022-06-06] MEDS ORDERED: POLYOPD OU (22:20)
[2022-06-06] MEDS ORDERED: OMEG10002 PO (22:20)
[2022-06-06] MEDS ORDERED: ACET650T61 PO ×2 (22:20)
[2022-06-06] MEDS ORDERED: OCUVTAB4 PO (22:20)
[2022-06-06] MEDS ORDERED: CITRTAB18 PO (22:20)
[2022-06-06] MEDS ORDERED: CEPH500C PO (22:20)
[2022-06-06] MEDS ORDERED: ZINC220CA PO (22:20)
[2022-06-06] MEDS ORDERED: LEXA5TAB13 PO (22:20)
[2022-06-06] MEDS: PERCOCET 5MG/325MG TAB PO PRN (23:06)
[2022-06-07] VITALS (8 sets, daily range): BP systolic 98–154; BP diastolic 55–93
[2022-06-07] MEDS: GABAPENTIN 300 MG CAP PO SCH ×4 (00:01→20:29)
[2022-06-07] MEDS: MONTELUKAST 10 MG TAB PO SCH ×2 (00:01→20:29)
[2022-06-07] MEDS ORDERED: POLYVINYL ALCOHOL OPHTH SOLN 15ML (LIQUITEARS) OU PRN (00:10)
[2022-06-07] MEDS ORDERED: AZELASTINE 137MCG NASAL SPY 30 ML (ASTELIN) PRN (00:10)
[2022-06-07] MEDS: ACETAMINOPHEN 650MG ER TAB (TYLENOL ARTHRITIS) PO SCH ×2 (00:50→20:29)
[2022-06-07] MEDS: LEVOTHYROXINE 75MCG TABLET (0.075MG) PO SCH (05:38)
[2022-06-07 06:17] LABS: BASO % 0.1 % (0.0-1.0); EOS % 0.1 % (0.0-3.0); HEMATOCRIT 29.3 % (36.0-47.0); LYMPH # 2.4 10^3/uL (1.5-5.0); MEAN CORPUSCULAR HEMOGLOBIN 29.6 pg (27.0-33.0); MEAN CORPUSCULAR HGB CONC 32.4 g/dl (32.0-36.5); MEAN CORPUSCULAR VOLUME 91.3 fl (80.0-96.0); MONO # 0.9 10^3/uL (0.0-0.8); MONO % 9.3 % (2.0-8.0); NEUTROPHILS # 6.5 10^3/uL (1.5-8.5); NEUTROPHILS % 65.5 % (36.0-66.0); PLATELET COUNT, AUTOMATED 234 10^3/uL (150-450); RED BLOOD COUNT 3.21 10^6/uL (4.00-5.40); WHITE BLOOD COUNT 9.9 10^3/uL (4.0-10.0)
[2022-06-07 06:29] LABS: HEMOGLOBIN 9.5 g/dl (12.0-15.5)
[2022-06-07 06:43] LABS: BLOOD UREA NITROGEN 20 MG/DL (9-23); CALCIUM LEVEL 8.5 MG/DL (8.3-10.6); CARBON DIOXIDE LEVEL 28 MMOL/L (20-31); CHLORIDE LEVEL 101 MMOL/L (98-107); CREATININE FOR GFR 0.69 MG/DL (0.55-1.30); GLOMERULAR FILTRATION RATE > 60.0 (>32); GLUCOSE, FASTING 90 MG/DL (74-106); MAGNESIUM LEVEL 1.8 MG/DL (1.8-2.4); PHOSPHORUS LEVEL 3.2 MG/DL (2.4-5.1); POTASSIUM SERUM 4.2 MMOL/L (3.5-5.1); SODIUM LEVEL 135 MMOL/L (136-145)
[2022-06-07] MEDS: PERCOCET 5MG/325MG TAB PO PRN ×3 (06:50→21:24)
[2022-06-07] MEDS: FERROUS SULFATE 325MG TAB PO SCH (10:11)
[2022-06-07] MEDS: ESCITALOPRAM OXALATE 5MG TABLET (LEXAPRO) PO SCH (10:11)
[2022-06-07] MEDS: CETIRIZINE (ZyrTEC) 10 MG TAB PO SCH (10:11)
[2022-06-07] MEDS: NIRMATRELVIR/RITONAVIR CO-PACK (EMERGENCY USE AUTH) PO SCH ×2 (13:29→20:30)
[2022-06-07] MEDS: ENOXAPARIN 40MG/0.4ML SYRINGE (J1650 PER 10MG) SC SCH (15:07)
[2022-06-07] MEDS ORDERED: NIRMATRELVIR/RITONAVIR CO-PACK (EMERGENCY USE AUTH) PO SCH (21:00)
[2022-06-08] VITALS (9 sets, daily range): BP systolic 88–120; BP diastolic 55–76
[2022-06-08] MEDS: LEVOTHYROXINE 75MCG TABLET (0.075MG) PO SCH (06:02)
[2022-06-08 08:04] LABS: HEMATOCRIT 29.7 % (36.0-47.0); HEMOGLOBIN 9.6 g/dl (12.0-15.5); MEAN CORPUSCULAR HGB CONC 32.3 g/dl (32.0-36.5); MEAN CORPUSCULAR VOLUME 92.8 fl (80.0-96.0); PLATELET COUNT, AUTOMATED 216 10^3/uL (150-450)
[2022-06-08 08:31] LABS: BLOOD UREA NITROGEN 18 MG/DL (9-23); CALCIUM LEVEL 8.1 MG/DL (8.3-10.6); CARBON DIOXIDE LEVEL 29 MMOL/L (20-31); CHLORIDE LEVEL 103 MMOL/L (98-107); CREATININE FOR GFR 0.63 MG/DL (0.55-1.30); GLOMERULAR FILTRATION RATE > 60.0 (>32); GLUCOSE, FASTING 86 MG/DL (74-106); SODIUM LEVEL 136 MMOL/L (136-145)
[2022-06-08] MEDS: FERROUS SULFATE 325MG TAB PO SCH (08:42)
[2022-06-08] MEDS: CETIRIZINE (ZyrTEC) 10 MG TAB PO SCH (08:43)
[2022-06-08] MEDS: GABAPENTIN 300 MG CAP PO SCH ×3 (08:43→21:13)
[2022-06-08] MEDS: PERCOCET 5MG/325MG TAB PO PRN ×2 (08:44→21:15)
[2022-06-08] MEDS: ENOXAPARIN 40MG/0.4ML SYRINGE (J1650 PER 10MG) SC SCH (08:44)
[2022-06-08] MEDS: NIRMATRELVIR/RITONAVIR CO-PACK (EMERGENCY USE AUTH) PO SCH ×2 (08:46→21:16)
[2022-06-08] MEDS: ESCITALOPRAM OXALATE 5MG TABLET (LEXAPRO) PO SCH (08:51)
[2022-06-08] MEDS ORDERED: ENOXAPARIN 80MG/0.8ML SYRINGE (J1650 PER 10MG) SC SCH (21:00)
[2022-06-08] MEDS: MONTELUKAST 10 MG TAB PO SCH (21:13)
[2022-06-08] MEDS: ACETAMINOPHEN 650MG ER TAB (TYLENOL ARTHRITIS) PO SCH (21:14)
[2022-06-09] VITALS (11 sets, daily range): BP systolic 80–111; BP diastolic 50–68
[2022-06-09] MEDS ORDERED: NS 500 ML IV ONE ×2 (02:40→03:30)
[2022-06-09] MEDS ORDERED: NS 1,000 ML IV ONE ×2 (04:10→11:35)
[2022-06-09] MEDS: LEVOTHYROXINE 75MCG TABLET (0.075MG) PO SCH (05:57)
[2022-06-09 07:31] LABS: HEMATOCRIT 27.8 % (36.0-47.0); MEAN CORPUSCULAR HEMOGLOBIN 30.5 pg (27.0-33.0); MEAN CORPUSCULAR HGB CONC 32.4 g/dl (32.0-36.5); MEAN CORPUSCULAR VOLUME 94.2 fl (80.0-96.0); PLATELET COUNT, AUTOMATED 203 10^3/uL (150-450); RED BLOOD COUNT 2.95 10^6/uL (4.00-5.40); WHITE BLOOD COUNT 8.9 10^3/uL (4.0-10.0)
[2022-06-09 08:02] LABS: BLOOD UREA NITROGEN 13 MG/DL (9-23); CALCIUM LEVEL 7.9 MG/DL (8.3-10.6); CARBON DIOXIDE LEVEL 26 MMOL/L (20-31); CHLORIDE LEVEL 106 MMOL/L (98-107); GLOMERULAR FILTRATION RATE > 60.0 (>32); GLUCOSE, FASTING 95 MG/DL (74-106); POTASSIUM SERUM 3.9 MMOL/L (3.5-5.1); SODIUM LEVEL 138 MMOL/L (136-145)
[2022-06-09] MEDS: FERROUS SULFATE 325MG TAB PO SCH (09:45)
[2022-06-09] MEDS: ESCITALOPRAM OXALATE 5MG TABLET (LEXAPRO) PO SCH (09:45)
[2022-06-09] MEDS: CETIRIZINE (ZyrTEC) 10 MG TAB PO SCH (09:45)
[2022-06-09] MEDS: GABAPENTIN 300 MG CAP PO SCH ×3 (09:45→20:40)
[2022-06-09] MEDS: NIRMATRELVIR/RITONAVIR CO-PACK (EMERGENCY USE AUTH) PO SCH ×2 (09:48→20:42)
[2022-06-09] MEDS: PERCOCET 5MG/325MG TAB PO PRN (11:33)
[2022-06-09 12:20] LABS: HEMATOCRIT 32.2 % (36.0-47.0); HEMOGLOBIN 10.1 g/dl (12.0-15.5)
[2022-06-09] MEDS: NS 1,000 ML IV SCH (16:38)
[2022-06-09] MEDS: MONTELUKAST 10 MG TAB PO SCH (20:40)
[2022-06-09] MEDS: ACETAMINOPHEN 650MG ER TAB (TYLENOL ARTHRITIS) PO SCH (20:41)
[2022-06-10] VITALS (7 sets, daily range): BP systolic 88–126; BP diastolic 60–81
[2022-06-10] MEDS: PERCOCET 5MG/325MG TAB PO PRN ×2 (01:51→18:45)
[2022-06-10] MEDS: NS 1,000 ML IV SCH ×2 (03:40→11:00)
[2022-06-10] MEDS: LEVOTHYROXINE 75MCG TABLET (0.075MG) PO SCH (05:33)
[2022-06-10 06:20] LABS: HEMATOCRIT 28.5 % (36.0-47.0); HEMOGLOBIN 8.7 g/dl (12.0-15.5); MEAN CORPUSCULAR HGB CONC 30.5 g/dl (32.0-36.5); PLATELET COUNT, AUTOMATED 198 10^3/uL (150-450); WHITE BLOOD COUNT 8.9 10^3/uL (4.0-10.0)
[2022-06-10 06:47] LABS: BLOOD UREA NITROGEN 13 MG/DL (9-23); CALCIUM LEVEL 7.6 MG/DL (8.3-10.6); CARBON DIOXIDE LEVEL 24 MMOL/L (20-31); CHLORIDE LEVEL 108 MMOL/L (98-107); CREATININE FOR GFR 0.58 MG/DL (0.55-1.30); GLOMERULAR FILTRATION RATE > 60.0 (>32); GLUCOSE, FASTING 97 MG/DL (74-106); MAGNESIUM LEVEL 1.6 MG/DL (1.8-2.4); POTASSIUM SERUM 4.3 MMOL/L (3.5-5.1); SODIUM LEVEL 138 MMOL/L (136-145)
[2022-06-10] MEDS ORDERED: MAGNESIUM OXIDE 400MG TAB (MAG-OX) PO ONE (07:05)
[2022-06-10] MEDS: ESCITALOPRAM OXALATE 5MG TABLET (LEXAPRO) PO SCH (08:05)
[2022-06-10] MEDS: FERROUS SULFATE 325MG TAB PO SCH (08:06)
[2022-06-10] MEDS: CETIRIZINE (ZyrTEC) 10 MG TAB PO SCH (08:06)
[2022-06-10] MEDS: DOCUSATE SODIUM 100MG CAPSULE PO SCH ×2 (08:06→20:17)
[2022-06-10] MEDS: GABAPENTIN 300 MG CAP PO SCH ×3 (08:06→20:17)
[2022-06-10] MEDS: NIRMATRELVIR/RITONAVIR CO-PACK (EMERGENCY USE AUTH) PO SCH ×2 (08:08→20:22)
[2022-06-10] MEDS ORDERED: NS 1,000 ML IV ONE (10:50)
[2022-06-10] MEDS ORDERED: KETOROLAC 30 MG/ML 1ML VIAL IV PRN (10:55)
[2022-06-10 11:49] LABS: HEMATOCRIT 28.8 % (36.0-47.0)
[2022-06-10] MEDS: HEPARIN SOD (PORCINE) 5000UNITS/ML 1ML VIAL/SYRINGE SQ SCH ×2 (14:26→20:17)
[2022-06-10] MEDS: IPRATROPIUM 0.5MG/ALBUTEROL 2.5MG INH SOL UD 3ML (DUONEB) NEB SCH ×3 (16:00→23:21)
[2022-06-10] MEDS ORDERED: methylPREDNISolone 40MG 1ML VIAL IV ONE (17:30)
[2022-06-10] MEDS ORDERED: LEVALBUTEROL 1.25MG 0.5ML CONCENTRATE NEB INH PRN (17:30)
[2022-06-10] MEDS: MONTELUKAST 10 MG TAB PO SCH (20:17)
[2022-06-10] MEDS: ACETAMINOPHEN 650MG ER TAB (TYLENOL ARTHRITIS) PO SCH (20:17)
[2022-06-11 01:43] VITALS: BP 112/74
[2022-06-11] MEDS: IPRATROPIUM 0.5MG/ALBUTEROL 2.5MG INH SOL UD 3ML (DUONEB) NEB SCH ×6 (03:32→23:12)
[2022-06-11 05:19] VITALS: BP 106/61
[2022-06-11] MEDS: LEVOTHYROXINE 75MCG TABLET (0.075MG) PO SCH (05:20)
[2022-06-11] MEDS: HEPARIN SOD (PORCINE) 5000UNITS/ML 1ML VIAL/SYRINGE SQ SCH ×3 (05:20→21:10)
[2022-06-11 07:10] LABS: HEMATOCRIT 28.6 % (36.0-47.0); MEAN CORPUSCULAR HEMOGLOBIN 29.7 pg (27.0-33.0); MEAN CORPUSCULAR HGB CONC 31.5 g/dl (32.0-36.5); MEAN CORPUSCULAR VOLUME 94.4 fl (80.0-96.0); PLATELET COUNT, AUTOMATED 237 10^3/uL (150-450); RED BLOOD COUNT 3.03 10^6/uL (4.00-5.40); WHITE BLOOD COUNT 8.7 10^3/uL (4.0-10.0)
[2022-06-11 07:25] LABS: BLOOD UREA NITROGEN 13 MG/DL (9-23); CALCIUM LEVEL 8.4 MG/DL (8.3-10.6); CARBON DIOXIDE LEVEL 19 MMOL/L (20-31); CHLORIDE LEVEL 107 MMOL/L (98-107); GLOMERULAR FILTRATION RATE > 60.0 (>32); GLUCOSE, FASTING 176 MG/DL (74-106); MAGNESIUM LEVEL 1.8 MG/DL (1.8-2.4); PHOSPHORUS LEVEL 3.2 MG/DL (2.4-5.1); POTASSIUM SERUM 4.4 MMOL/L (3.5-5.1); SODIUM LEVEL 136 MMOL/L (136-145)
[2022-06-11] MEDS: ESCITALOPRAM OXALATE 5MG TABLET (LEXAPRO) PO SCH (08:34)
[2022-06-11] MEDS: GABAPENTIN 300 MG CAP PO SCH ×3 (08:34→20:17)
[2022-06-11] MEDS: ACETAMINOPHEN 650MG ER TAB (TYLENOL ARTHRITIS) PO SCH (08:34)
[2022-06-11] MEDS: DOCUSATE SODIUM 100MG CAPSULE PO SCH ×2 (08:34→20:17)
[2022-06-11] MEDS: CETIRIZINE (ZyrTEC) 10 MG TAB PO SCH (08:34)
[2022-06-11] MEDS: FERROUS SULFATE 325MG TAB PO SCH (08:34)
[2022-06-11] MEDS: NIRMATRELVIR/RITONAVIR CO-PACK (EMERGENCY USE AUTH) PO SCH ×2 (08:35→21:13)
[2022-06-11 10:00] VITALS: BP 103/65
[2022-06-11] MEDS: PERCOCET 5MG/325MG TAB PO PRN (13:00)
[2022-06-11 14:00] VITALS: BP 111/77
[2022-06-11 18:00] VITALS: BP 100/72
[2022-06-11] MEDS: MONTELUKAST 10 MG TAB PO SCH (20:17)
[2022-06-11 21:22] VITALS: BP 121/81
[2022-06-12] VITALS (8 sets, daily range): BP systolic 104–125; BP diastolic 73–88
[2022-06-12] MEDS: TEMAZEPAM 7.5 MG CAP PO PRN (01:35)
[2022-06-12] MEDS: IPRATROPIUM 0.5MG/ALBUTEROL 2.5MG INH SOL UD 3ML (DUONEB) NEB SCH ×5 (04:00→21:20)
[2022-06-12] MEDS: LEVOTHYROXINE 75MCG TABLET (0.075MG) PO SCH (05:41)
[2022-06-12] MEDS: HEPARIN SOD (PORCINE) 5000UNITS/ML 1ML VIAL/SYRINGE SQ SCH ×4 (05:41→21:49)
[2022-06-12 08:22] LABS: BASO % 0.1 % (0.0-1.0); HEMATOCRIT 28.9 % (36.0-47.0); HEMOGLOBIN 9.4 g/dl (12.0-15.5); LYMPH # 1.1 10^3/uL (1.5-5.0); LYMPH % 10.3 % (24.0-44.0); MEAN CORPUSCULAR HEMOGLOBIN 30.3 pg (27.0-33.0); MEAN CORPUSCULAR HGB CONC 32.5 g/dl (32.0-36.5); MEAN CORPUSCULAR VOLUME 93.2 fl (80.0-96.0); MONO # 0.7 10^3/uL (0.0-0.8); MONO % 6.5 % (2.0-8.0); NEUTROPHILS # 8.9 10^3/uL (1.5-8.5); NEUTROPHILS % 81.5 % (36.0-66.0); PLATELET COUNT, AUTOMATED 271 10^3/uL (150-450); WHITE BLOOD COUNT 10.9 10^3/uL (4.0-10.0)
[2022-06-12] MEDS ORDERED: propofoL 200 MG/20 ML VIAL As Ordered ONE (08:35)
[2022-06-12] MEDS ORDERED: LIDOCAINE 2% 100MG/5ML SDV (FOR ANES.) As Ordered ONE (08:35)
[2022-06-12] MEDS: CETIRIZINE (ZyrTEC) 10 MG TAB PO SCH (08:42)
[2022-06-12] MEDS: GABAPENTIN 300 MG CAP PO SCH ×3 (08:42→21:49)
[2022-06-12] MEDS: FERROUS SULFATE 325MG TAB PO SCH (08:42)
[2022-06-12] MEDS: DOCUSATE SODIUM 100MG CAPSULE PO SCH ×2 (08:42→21:49)
[2022-06-12] MEDS: ESCITALOPRAM OXALATE 5MG TABLET (LEXAPRO) PO SCH (08:42)
[2022-06-12] MEDS ORDERED: fentaNYL 100 MCG/2 ML INJECTION As Ordered ONE ×2 (09:13→14:12)
[2022-06-12 10:23] LABS: BLOOD UREA NITROGEN 17 MG/DL (9-23); CALCIUM LEVEL 8.7 MG/DL (8.3-10.6); CARBON DIOXIDE LEVEL 23 MMOL/L (20-31); CHLORIDE LEVEL 107 MMOL/L (98-107); CREATININE FOR GFR 0.51 MG/DL (0.55-1.30); GLOMERULAR FILTRATION RATE > 60.0 (>32); GLUCOSE, FASTING 129 MG/DL (74-106); POTASSIUM SERUM 4.9 MMOL/L (3.5-5.1); SODIUM LEVEL 138 MMOL/L (136-145)
[2022-06-12] MEDS ORDERED: ONDANSETRON 4MG 2ML VIAL IV PRN (14:30)
[2022-06-12] MEDS ORDERED: fentaNYL 100 MCG/2 ML INJECTION IV PRN (14:30)
[2022-06-12] MEDS ORDERED: traMADol 50 MG TAB PO ONE (14:30)
[2022-06-12] MEDS ORDERED: LR 1,000 ML IV SCH (14:30)
[2022-06-12] MEDS: PERCOCET 5MG/325MG TAB PO PRN (16:28)
[2022-06-12] MEDS: ACETAMINOPHEN 650MG ER TAB (TYLENOL ARTHRITIS) PO SCH (21:49)
[2022-06-12] MEDS: MONTELUKAST 10 MG TAB PO SCH (21:49)
[2022-06-13] VITALS (8 sets, daily range): BP systolic 93–117; BP diastolic 60–74
[2022-06-13] MEDS: IPRATROPIUM 0.5MG/ALBUTEROL 2.5MG INH SOL UD 3ML (DUONEB) NEB SCH ×7 (04:00→23:21)
[2022-06-13] MEDS: LEVOTHYROXINE 75MCG TABLET (0.075MG) PO SCH (06:03)
[2022-06-13] MEDS: HEPARIN SOD (PORCINE) 5000UNITS/ML 1ML VIAL/SYRINGE SQ SCH (06:03)
[2022-06-13 06:21] LABS: HEMATOCRIT 28.2 % (36.0-47.0); HEMOGLOBIN 8.9 g/dl (12.0-15.5); MEAN CORPUSCULAR HEMOGLOBIN 29.8 pg (27.0-33.0); MEAN CORPUSCULAR HGB CONC 31.6 g/dl (32.0-36.5); MEAN CORPUSCULAR VOLUME 94.3 fl (80.0-96.0); PLATELET COUNT, AUTOMATED 258 10^3/uL (150-450); RED BLOOD COUNT 2.99 10^6/uL (4.00-5.40); WHITE BLOOD COUNT 9.6 10^3/uL (4.0-10.0)
[2022-06-13] MEDS: FERROUS SULFATE 325MG TAB PO SCH (09:47)
[2022-06-13] MEDS: CETIRIZINE (ZyrTEC) 10 MG TAB PO SCH (09:47)
[2022-06-13] MEDS: GABAPENTIN 300 MG CAP PO SCH ×3 (09:47→21:40)
[2022-06-13] MEDS: ESCITALOPRAM OXALATE 5MG TABLET (LEXAPRO) PO SCH (09:47)
[2022-06-13] MEDS: DOCUSATE SODIUM 100MG CAPSULE PO SCH ×2 (09:47→21:40)
[2022-06-13] MEDS: PERCOCET 5MG/325MG TAB PO PRN (14:31)
[2022-06-13] MEDS: RIVAROXABAN 20MG TAB (XARELTO) PO SCH (17:22)
[2022-06-13] MEDS: ACETAMINOPHEN 650MG ER TAB (TYLENOL ARTHRITIS) PO SCH (21:40)
[2022-06-13] MEDS: MONTELUKAST 10 MG TAB PO SCH (21:40)
[2022-06-14 01:30] VITALS: BP 95/61
[2022-06-14] MEDS: IPRATROPIUM 0.5MG/ALBUTEROL 2.5MG INH SOL UD 3ML (DUONEB) NEB SCH ×6 (04:00→23:09)
[2022-06-14 05:40] VITALS: BP 102/70
[2022-06-14] MEDS: LEVOTHYROXINE 75MCG TABLET (0.075MG) PO SCH (05:46)
[2022-06-14] MEDS: ESCITALOPRAM OXALATE 5MG TABLET (LEXAPRO) PO SCH (09:17)
[2022-06-14] MEDS: GABAPENTIN 300 MG CAP PO SCH ×3 (09:17→20:44)
[2022-06-14] MEDS: DOCUSATE SODIUM 100MG CAPSULE PO SCH ×2 (09:18→20:44)
[2022-06-14] MEDS: FERROUS SULFATE 325MG TAB PO SCH (09:18)
[2022-06-14] MEDS: CETIRIZINE (ZyrTEC) 10 MG TAB PO SCH (09:18)
[2022-06-14] MEDS: PERCOCET 5MG/325MG TAB PO PRN ×2 (11:20→23:47)
[2022-06-14 14:00] VITALS: BP 94/58
[2022-06-14 14:41] VITALS: BP 96/54
[2022-06-14] MEDS: RIVAROXABAN 20MG TAB (XARELTO) PO SCH (17:31)
[2022-06-14] MEDS: MONTELUKAST 10 MG TAB PO SCH (20:43)
[2022-06-14] MEDS: ACETAMINOPHEN 650MG ER TAB (TYLENOL ARTHRITIS) PO SCH (20:44)
[2022-06-14 20:54] VITALS: BP 94/59
[2022-06-15 02:22] VITALS: BP 90/61
[2022-06-15] MEDS: IPRATROPIUM 0.5MG/ALBUTEROL 2.5MG INH SOL UD 3ML (DUONEB) NEB SCH ×6 (04:00→23:37)
[2022-06-15 05:05] VITALS: BP 91/60
[2022-06-15] MEDS: LEVOTHYROXINE 75MCG TABLET (0.075MG) PO SCH (05:43)
[2022-06-15 06:33] LABS: HEMATOCRIT 28.9 % (36.0-47.0); HEMOGLOBIN 9.2 g/dl (12.0-15.5); MEAN CORPUSCULAR HEMOGLOBIN 30.1 pg (27.0-33.0); MEAN CORPUSCULAR HGB CONC 31.8 g/dl (32.0-36.5); MEAN CORPUSCULAR VOLUME 94.4 fl (80.0-96.0); PLATELET COUNT, AUTOMATED 283 10^3/uL (150-450); RED BLOOD COUNT 3.06 10^6/uL (4.00-5.40)
[2022-06-15 08:00] VITALS: BP 93/60
[2022-06-15] MEDS: ESCITALOPRAM OXALATE 5MG TABLET (LEXAPRO) PO SCH (09:39)
[2022-06-15] MEDS: GABAPENTIN 300 MG CAP PO SCH ×3 (09:39→20:07)
[2022-06-15] MEDS: DOCUSATE SODIUM 100MG CAPSULE PO SCH ×2 (09:39→20:07)
[2022-06-15] MEDS: FERROUS SULFATE 325MG TAB PO SCH (09:40)
[2022-06-15] MEDS: CETIRIZINE (ZyrTEC) 10 MG TAB PO SCH (09:40)
[2022-06-15] MEDS: ACETAMINOPHEN 650MG ER TAB (TYLENOL ARTHRITIS) PO PRN (09:41)
[2022-06-15] MEDS ORDERED: SENNA 8.6 MG TAB (SENOKOT) PO PRN (09:45)
[2022-06-15] MEDS: MIRALAX *UNIT DOSE* 17GM PACKET PO SCH (10:43)
[2022-06-15 14:00] VITALS: BP 94/61
[2022-06-15 14:27] LABS: HEMATOCRIT 36.2 % (36.0-47.0); HEMOGLOBIN 11.6 g/dl (12.0-15.5); MEAN CORPUSCULAR HEMOGLOBIN 30.7 pg (27.0-33.0); MEAN CORPUSCULAR VOLUME 95.8 fl (80.0-96.0); PLATELET COUNT, AUTOMATED 363 10^3/uL (150-450); RED BLOOD COUNT 3.78 10^6/uL (4.00-5.40); WHITE BLOOD COUNT 13.6 10^3/uL (4.0-10.0)
[2022-06-15] MEDS: RIVAROXABAN 20MG TAB (XARELTO) PO SCH (16:44)
[2022-06-15 18:00] VITALS: BP 117/79
[2022-06-15] MEDS: ACETAMINOPHEN 650MG ER TAB (TYLENOL ARTHRITIS) PO SCH (20:07)
[2022-06-15] MEDS: SIMVASTATIN 20 MG TAB PO SCH (20:09)
[2022-06-15] MEDS: MONTELUKAST 10 MG TAB PO SCH (20:09)
[2022-06-15 20:12] VITALS: BP 110/72
[2022-06-16] MEDS: PERCOCET 5MG/325MG TAB PO PRN ×2 (00:37→23:43)
[2022-06-16] MEDS: IPRATROPIUM 0.5MG/ALBUTEROL 2.5MG INH SOL UD 3ML (DUONEB) NEB SCH ×6 (03:30→23:34)
[2022-06-16 05:33] VITALS: BP 106/70
[2022-06-16] MEDS: LEVOTHYROXINE 75MCG TABLET (0.075MG) PO SCH (06:12)
[2022-06-16 07:50] LABS: BASO % 0.4 % (0.0-1.0); EOS # 0.2 10^3/uL (0.0-0.5); EOS % 2.3 % (0.0-3.0); HEMATOCRIT 32.7 % (36.0-47.0); HEMOGLOBIN 10.4 g/dl (12.0-15.5); LYMPH % 20.6 % (24.0-44.0); MEAN CORPUSCULAR HEMOGLOBIN 30.1 pg (27.0-33.0); MEAN CORPUSCULAR HGB CONC 31.8 g/dl (32.0-36.5); MEAN CORPUSCULAR VOLUME 94.5 fl (80.0-96.0); MONO # 0.7 10^3/uL (0.0-0.8); MONO % 7.3 % (2.0-8.0); NEUTROPHILS # 6.5 10^3/uL (1.5-8.5); NEUTROPHILS % 67.9 % (36.0-66.0); PLATELET COUNT, AUTOMATED 333 10^3/uL (150-450); RED BLOOD COUNT 3.46 10^6/uL (4.00-5.40); WHITE BLOOD COUNT 9.6 10^3/uL (4.0-10.0)
[2022-06-16] MEDS: MIRALAX *UNIT DOSE* 17GM PACKET PO SCH (09:00)
[2022-06-16] MEDS: GABAPENTIN 300 MG CAP PO SCH ×3 (09:55→20:45)
[2022-06-16] MEDS: ESCITALOPRAM OXALATE 5MG TABLET (LEXAPRO) PO SCH (09:55)
[2022-06-16] MEDS: DOCUSATE SODIUM 100MG CAPSULE PO SCH ×2 (09:55→20:46)
[2022-06-16] MEDS: FERROUS SULFATE 325MG TAB PO SCH (09:56)
[2022-06-16] MEDS: CETIRIZINE (ZyrTEC) 10 MG TAB PO SCH (09:56)
[2022-06-16 15:00] VITALS: BP 90/60
[2022-06-16] MEDS: RIVAROXABAN 20MG TAB (XARELTO) PO SCH (16:58)
[2022-06-16 20:26] VITALS: BP 106/64
[2022-06-16] MEDS: ACETAMINOPHEN 650MG ER TAB (TYLENOL ARTHRITIS) PO SCH (20:45)
[2022-06-16] MEDS: SIMVASTATIN 20 MG TAB PO SCH (20:45)
[2022-06-16] MEDS: MONTELUKAST 10 MG TAB PO SCH (20:46)
[2022-06-17] MEDS: IPRATROPIUM 0.5MG/ALBUTEROL 2.5MG INH SOL UD 3ML (DUONEB) NEB SCH ×6 (04:00→23:23)
[2022-06-17 05:40] VITALS: BP 104/58
[2022-06-17] MEDS: LEVOTHYROXINE 75MCG TABLET (0.075MG) PO SCH (05:41)
[2022-06-17] MEDS: MIRALAX *UNIT DOSE* 17GM PACKET PO SCH (09:00)
[2022-06-17] MEDS: GABAPENTIN 300 MG CAP PO SCH ×3 (09:40→20:44)
[2022-06-17] MEDS: DOCUSATE SODIUM 100MG CAPSULE PO SCH ×2 (09:41→20:44)
[2022-06-17] MEDS: FERROUS SULFATE 325MG TAB PO SCH (09:41)
[2022-06-17] MEDS: ESCITALOPRAM OXALATE 5MG TABLET (LEXAPRO) PO SCH (09:41)
[2022-06-17] MEDS: CETIRIZINE (ZyrTEC) 10 MG TAB PO SCH (09:41)
[2022-06-17 14:00] VITALS: BP 95/60
[2022-06-17] MEDS: RIVAROXABAN 20MG TAB (XARELTO) PO SCH (17:04)
[2022-06-17 20:39] VITALS: BP 130/77
[2022-06-17] MEDS: MONTELUKAST 10 MG TAB PO SCH (20:44)
[2022-06-17] MEDS: SIMVASTATIN 20 MG TAB PO SCH (20:44)
[2022-06-17] MEDS: ACETAMINOPHEN 650MG ER TAB (TYLENOL ARTHRITIS) PO SCH (20:45)
[2022-06-17 23:45] VITALS: BP 86/50
[2022-06-17 23:50] VITALS: BP 124/73
[2022-06-17] MEDS ORDERED: NS 500 ML IV ONE (23:55)
[2022-06-18 02:00] VITALS: BP 119/59
[2022-06-18] MEDS: IPRATROPIUM 0.5MG/ALBUTEROL 2.5MG INH SOL UD 3ML (DUONEB) NEB SCH ×3 (03:07→11:28)
[2022-06-18] MEDS: LEVOTHYROXINE 75MCG TABLET (0.075MG) PO SCH (05:47)
[2022-06-18 05:50] VITALS: BP 149/65
[2022-06-18] MEDS ORDERED: SPIR-10 PO (08:08)
[2022-06-18] MEDS ORDERED: FURO40TA2 PO (08:08)
[2022-06-18] MEDS: ESCITALOPRAM OXALATE 5MG TABLET (LEXAPRO) PO SCH (08:52)
[2022-06-18] MEDS: DOCUSATE SODIUM 100MG CAPSULE PO SCH (08:52)
[2022-06-18] MEDS: MIRALAX *UNIT DOSE* 17GM PACKET PO SCH ×2 (08:53→08:56)
[2022-06-18] MEDS: CETIRIZINE (ZyrTEC) 10 MG TAB PO SCH (08:53)
[2022-06-18] MEDS: FERROUS SULFATE 325MG TAB PO SCH (08:53)
[2022-06-18] MEDS: GABAPENTIN 300 MG CAP PO SCH (08:53)
[2022-06-18] MEDS: ACETAMINOPHEN 650MG ER TAB (TYLENOL ARTHRITIS) PO PRN (12:06)
== END 2022-06-18 12:56 | DRG 562 ==
LOC: M ED 11:57 → M ED INP 17:34 → M MSPAV 21:16
PROVIDERS: ADMIT Internal Medicine; ATTEND Internal Medicine
PROC: B246ZZZ Ultrasonography of Right and Left Heart (ICD-10-PCS; 2022-06-07)
PROC: 0PSCXZZ Reposition Right Humeral Head, External Approach (ICD-10-PCS; principal; 2022-06-12 13:30)
DX: S42.211A Unspecified displaced fracture of surgical neck of right humerus, initial encounter for closed fracture (principal); U07.1 COVID-19; I48.20 Chronic atrial fibrillation, unspecified; D62 Acute posthemorrhagic anemia; W18.09XA Striking against other object with subsequent fall, initial encounter; Y93.89 Activity, other specified; Y99.8 Other external cause status; Y92.248 Other public administrative building as the place of occurrence of the external cause; E03.9 Hypothyroidism, unspecified; F32.A Depression, unspecified; F41.9 Anxiety disorder, unspecified; M19.90 Unspecified osteoarthritis, unspecified site; E78.5 Hyperlipidemia, unspecified; R73.01 Impaired fasting glucose; I27.20 Pulmonary hypertension, unspecified; R42 Dizziness and giddiness; G89.29 Other chronic pain; J30.2 Other seasonal allergic rhinitis; I95.2 Hypotension due to drugs; G62.9 Polyneuropathy, unspecified; Z79.890 Hormone replacement therapy; Z79.899 Other long term (current) drug therapy; Z88.5 Allergy status to narcotic agent; Z88.8 Allergy status to other drugs, medicaments and biological substances; Z87.74 Personal history of (corrected) congenital malformations of heart and circulatory system; Z90.49 Acquired absence of other specified parts of digestive tract; Z98.41 Cataract extraction status, right eye; Z96.652 Presence of left artificial knee joint; Z98.42 Cataract extraction status, left eye; Z79.01 Long term (current) use of anticoagulants

== ENCOUNTER → 2022-06-25 | Outpatient (CLI) | payer MEDICARE ==
[~2022-06-25] MED LIST changes: +ACET650T61 PO; +CEPH500C PO; +CITRTAB18 PO; +LEXA5TAB13 PO; +OCUVTAB4 PO; +OMEG10002 PO; +POLYOPD OU; +ZINC220CA PO
== END ==
LOC: M SOG 08:04
PROVIDERS: ATTEND Orthopaedic Surgery
DX: S42.201A Unspecified fracture of upper end of right humerus, initial encounter for closed fracture (principal); Y93.9 Activity, unspecified; Y92.9 Unspecified place or not applicable

== ENCOUNTER → 2022-07-17 | Outpatient (CLI) | payer MEDICARE ==
[~2022-07-17] MED LIST changes: +ARTIDRO4 OU; -POLYOPD OU
== END ==
LOC: M SOG 08:43
PROVIDERS: ATTEND Orthopaedic Surgery
DX: S42.201D Unspecified fracture of upper end of right humerus, subsequent encounter for fracture with routine healing (principal)

== ENCOUNTER → 2022-08-01 | Outpatient (CLI) | payer MEDICARE | LOC: M SOG 08:06 | PROVIDERS: ATTEND Orthopaedic Surgery | DX: S42.211P Unspecified displaced fracture of surgical neck of right humerus, subsequent encounter for fracture with malunion (principal); M85.811 Other specified disorders of bone density and structure, right shoulder; M19.011 Primary osteoarthritis, right shoulder ==

== ENCOUNTER → 2022-08-14 | Outpatient (REF) | payer MEDICARE ==
[2022-08-14 17:30] LABS: HEMATOCRIT 40.7 % (36.0-47.0); HEMOGLOBIN 12.9 g/dl (12.0-15.5); MEAN CORPUSCULAR HEMOGLOBIN 29.9 pg (27.0-33.0); MEAN CORPUSCULAR HGB CONC 31.7 g/dl (32.0-36.5); MEAN CORPUSCULAR VOLUME 94.4 fl (80.0-96.0); PLATELET COUNT, AUTOMATED 269 10^3/uL (150-450); RED BLOOD COUNT 4.31 10^6/uL (4.00-5.40); WHITE BLOOD COUNT 7.3 10^3/uL (4.0-10.0)
[2022-08-14 17:56] LABS: URIC ACID 5.9 MG/DL (3.1-7.8)
[2022-08-14 18:00] LABS: ALBUMIN 4.1 G/DL (3.2-5.2); ALKALINE PHOSPHATASE 129 U/L (46-116); ALT/SGPT 30 U/L (7.0-40); AST/SGOT 23 U/L (<34); BILIRUBIN,TOTAL 0.5 MG/DL (0.3-1.2); BLOOD UREA NITROGEN 16 MG/DL (9-23); CALCIUM LEVEL 9.7 MG/DL (8.3-10.6); CARBON DIOXIDE LEVEL 28 MMOL/L (20-31); CHLORIDE LEVEL 104 MMOL/L (98-107); CHOLESTEROL LEVEL 117 MG/DL (<200); CHOLESTEROL RISK RATIO 2.34 (<5); CREATININE FOR GFR 0.75 MG/DL (0.55-1.30); GLOMERULAR FILTRATION RATE > 60.0 (>32); GLUCOSE, FASTING 73 MG/DL (74-106); HDL CHOLESTEROL 49.8 MG/DL (>40); LDL CHOLESTEROL 44.4 MG/DL (<100); MAGNESIUM LEVEL 1.8 MG/DL (1.8-2.4); NON-HDL-C 67.2 MG/DL; POTASSIUM SERUM 4.7 MMOL/L (3.5-5.1); SODIUM LEVEL 139 MMOL/L (136-145); TOTAL PROTEIN 6.1 G/DL (5.7-8.2); TRIGLYCERIDES LEVEL 114 MG/DL (<150)
[2022-08-14 18:01] LABS: FREE T4 1.35 NG/DL (0.89-1.76)
[2022-08-14 18:39] LABS: HEMOGLOBIN A1c 5.4 % (4.0-6.0)
== END ==
LOC: M SFHCCLAY 09:35
PROVIDERS: ATTEND Family Medicine
DX: E03.9 Hypothyroidism, unspecified (principal); R73.01 Impaired fasting glucose; E79.0 Hyperuricemia without signs of inflammatory arthritis and tophaceous disease; K21.9 Gastro-esophageal reflux disease without esophagitis

== ENCOUNTER → 2022-09-12 | Outpatient (CLI) | payer MEDICARE | LOC: M SOG 07:59 | PROVIDERS: ATTEND Orthopaedic Surgery | DX: S42.201P Unspecified fracture of upper end of right humerus, subsequent encounter for fracture with malunion (principal) ==

== ENCOUNTER → 2022-12-20 | Outpatient (REF) | payer MEDICARE | LOC: M SFHCCLAY 14:47 | PROVIDERS: ATTEND Physician Assistant | DX: R09.81 Nasal congestion (principal) ==

== ENCOUNTER → 2023-03-07 | Outpatient (CLI) | payer MEDICARE | LOC: M CLY 11:50 | PROVIDERS: ATTEND Family Medicine | DX: M77.31 Calcaneal spur, right foot (principal) ==

== ENCOUNTER → 2023-07-02 | Outpatient (CLI) | payer MEDICARE | LOC: M CLY 15:48 | PROVIDERS: ATTEND Family Medicine | DX: R05.9 Cough, unspecified (principal) ==

== ENCOUNTER → 2023-07-03 | Outpatient (CLI) | payer MEDICARE | LOC: M PLAIMG 10:13 | PROVIDERS: ATTEND Family Medicine | DX: R05.9 Cough, unspecified (principal) ==

== ENCOUNTER → 2023-11-05 | Outpatient (REF) | payer MEDICARE ==
[2023-11-05 16:20] LABS: HEMATOCRIT 38.8 % (36.0-47.0); HEMOGLOBIN 12.7 g/dl (12.0-15.5); MEAN CORPUSCULAR HEMOGLOBIN 30.4 pg (27.0-33.0); MEAN CORPUSCULAR HGB CONC 32.7 g/dl (32.0-36.5); MEAN CORPUSCULAR VOLUME 92.8 fl (80.0-96.0); PLATELET COUNT, AUTOMATED 262 10^3/uL (150-450); RED BLOOD COUNT 4.18 10^6/uL (4.00-5.40); WHITE BLOOD COUNT 7.5 10^3/uL (4.0-10.0)
[2023-11-05 16:42] LABS: HEMOGLOBIN A1c 5.8 % (4.0-6.0)
[2023-11-05 16:45] LABS: URIC ACID 7.8 MG/DL (3.1-7.8)
[2023-11-05 16:48] LABS: ALBUMIN 3.7 G/DL (3.2-5.2); ALKALINE PHOSPHATASE 124 U/L (46-116); ALT/SGPT 23 U/L (7.0-40); AST/SGOT 14 U/L (<34); BILIRUBIN,TOTAL 0.6 MG/DL (0.3-1.2); BLOOD UREA NITROGEN 26 MG/DL (9-23); CALCIUM LEVEL 9.4 MG/DL (8.3-10.6); CARBON DIOXIDE LEVEL 32 MMOL/L (20-31); CHLORIDE LEVEL 103 MMOL/L (98-107); CHOLESTEROL LEVEL 106 MG/DL (<200); CHOLESTEROL RISK RATIO 2.33 (<5); CREATININE FOR GFR 0.76 MG/DL (0.55-1.30); GLOMERULAR FILTRATION RATE > 60.0 (>32); GLUCOSE, FASTING 104 MG/DL (74-106); HDL CHOLESTEROL 45.3 MG/DL (>40); LDL CHOLESTEROL 46.7 MG/DL (<100); MAGNESIUM LEVEL 1.9 MG/DL (1.8-2.4); NON-HDL-C 60.7 MG/DL; POTASSIUM SERUM 3.8 MMOL/L (3.5-5.1); SODIUM LEVEL 140 MMOL/L (136-145); TOTAL PROTEIN 6.5 G/DL (5.7-8.2); TRIGLYCERIDES LEVEL 70 MG/DL (<150)
[2023-11-05 17:03] LABS: THYROID STIMULATING HORMONE 2.277 uIU/ML (0.55-4.78)
== END ==
LOC: M SFHCCLAY 12:04
PROVIDERS: ATTEND Family Medicine
DX: E03.9 Hypothyroidism, unspecified (principal); R73.01 Impaired fasting glucose; K21.9 Gastro-esophageal reflux disease without esophagitis; E79.0 Hyperuricemia without signs of inflammatory arthritis and tophaceous disease

== ENCOUNTER 2023-11-08 14:17 | Emergency (ER) | payer MEDICARE ==
[~2023-11-08] VITALS: Ht 162.6 cm; Wt 60.9 kg
[2023-11-08] MEDS: BOOSTRIX VACCINE (TETANUS/DIPHTH/ACEL. PERTUSSIS) 0.5ML SYR IM ONE (15:22)
[2023-11-08 16:32] VITALS: BP 134/93; O2SAT 97
[2023-11-08 16:39] VITALS: TEMP 96.7
[2023-11-08] MEDS: ACETAMINOPHEN TAB 650MG DOSE (2X325MG) PO ONE (16:41)
== END 2023-11-08 16:46 | disposition short-term general hospital (02) ==
LOC: M ED 14:17
DX: S02.121A Fracture of orbital roof, right side, initial encounter for closed fracture (principal); S02.612A Fracture of condylar process of left mandible, initial encounter for closed fracture; Y92.481 Parking lot as the place of occurrence of the external cause; Y93.9 Activity, unspecified; Y99.9 Unspecified external cause status; I11.0 Hypertensive heart disease with heart failure; E78.5 Hyperlipidemia, unspecified; J44.9 Chronic obstructive pulmonary disease, unspecified; K21.9 Gastro-esophageal reflux disease without esophagitis; Z23 Encounter for immunization; Z88.5 Allergy status to narcotic agent; Z88.8 Allergy status to other drugs, medicaments and biological substances; Z79.1 Long term (current) use of non-steroidal anti-inflammatories (NSAID); Z79.899 Other long term (current) drug therapy

== ENCOUNTER → 2024-01-30 | Outpatient (CLI) | payer MEDICARE, MEDICAID ==
[~2024-01-30] MED LIST changes: +GABA-1490 PO; -GABA600T4 PO
== END ==
LOC: M SLEEP 20:00
PROVIDERS: ATTEND Nurse Practitioner Adult Health
DX: G47.33 Obstructive sleep apnea (adult) (pediatric) (principal); G47.61 Periodic limb movement disorder

== ENCOUNTER → 2024-06-09 | Outpatient (REF) | payer MEDICARE ==
[2024-06-09 18:06] LABS: ALBUMIN 3.4 G/DL (3.2-5.2); ALKALINE PHOSPHATASE 122 U/L (35-104); ALT/SGPT 32 U/L (7.0-40); AST/SGOT 19 U/L (<34); BILIRUBIN,TOTAL 0.7 MG/DL (0.3-1.2); BLOOD UREA NITROGEN 19 MG/DL (9-23); CALCIUM LEVEL 9.3 MG/DL (8.3-10.6); CARBON DIOXIDE LEVEL 29 MMOL/L (20-31); CHLORIDE LEVEL 106 MMOL/L (98-107); CREATININE FOR GFR 0.75 MG/DL (0.55-1.30); GLOMERULAR FILTRATION RATE > 60.0 (>32); GLUCOSE, FASTING 90 MG/DL (74-106); POTASSIUM SERUM 4.8 MMOL/L (3.5-5.1); SODIUM LEVEL 141 MMOL/L (136-145); TOTAL PROTEIN 6.3 G/DL (5.7-8.2)
[2024-06-09 18:08] LABS: THYROID STIMULATING HORMONE 3.651 uIU/ML (0.55-4.78)
== END ==
LOC: M SFHCCLAY 09:11
PROVIDERS: ATTEND Family Medicine
DX: E03.9 Hypothyroidism, unspecified (principal)

== ENCOUNTER → 2024-10-29 | Outpatient (CLI) | payer MEDICARE | LOC: M CLY 14:12 | PROVIDERS: ATTEND Family Medicine | DX: I27.20 Pulmonary hypertension, unspecified (principal); M85.851 Other specified disorders of bone density and structure, right thigh; M25.551 Pain in right hip; R05.2 Subacute cough ==

== ENCOUNTER → 2024-10-29 | Outpatient (REF) | payer MEDICARE ==
[2024-10-29 18:12] LABS: PLATELET COUNT, AUTOMATED 283 10^3/uL (150-450)
[2024-10-29 18:15] LABS: ALT/SGPT 22.0 U/L (7.0-40); AST/SGOT 26.0 U/L (<34); CALCIUM LEVEL 9.4 MG/DL (8.3-10.6); CARBON DIOXIDE LEVEL 28.0 MMOL/L (20-31); CHLORIDE LEVEL 101.0 MMOL/L (98-107); CHOLESTEROL LEVEL 148.0 MG/DL (<200); CHOLESTEROL RISK RATIO 2.65 (<5); CREATININE FOR GFR 0.67 MG/DL (0.55-1.30); GLOMERULAR FILTRATION RATE 83.5 (>32); LDL CHOLESTEROL 61.5 MG/DL (<100); MAGNESIUM LEVEL 1.9 MG/DL (1.8-2.4); NON-HDL-C 92.3 MG/DL; POTASSIUM SERUM 4.4 MMOL/L (3.5-5.1); SODIUM LEVEL 139.0 MMOL/L (136-145); TRIGLYCERIDES LEVEL 154.0 MG/DL (<150)
[2024-10-29 18:17] LABS: FREE T4 1.39 NG/DL (0.89-1.76)
[2024-10-29 18:47] LABS: ESTIMATED AVERAGE GLUCOSE 123.0 MG/DL (60-110)
== END ==
LOC: M SFHCCLAY 13:55
PROVIDERS: ATTEND Family Medicine
DX: R73.01 Impaired fasting glucose (principal); E03.9 Hypothyroidism, unspecified; K21.9 Gastro-esophageal reflux disease without esophagitis; E55.9 Vitamin D deficiency, unspecified